=== PATIENT | male | born 1970 | race Caucasian/White ===

== ENCOUNTER 2017-05-21 17:49 | Inpatient (IN) | payer BC ==
[2017-05-21] MEDS ORDERED: IBUPROFEN 600 MG TAB PO STA (18:33)
[2017-05-21] MEDS ORDERED: ACETAMINOPHEN TAB 500 MG TAB PO STA (18:33)
[2017-05-21] MEDS ORDERED: IV VANCOMYCIN PER PHARMACY 1 EACH MISC MISCELLANE PRN (18:33)
--- NOTE | 2017-05-21 18:41 | ED ---
General Adult HPI - General Chief complaint: Extremity Problem,Nontraumatic Stated complaint: Knee Swelling/Pain Time Seen by Provider: 05/21/17 18:19 Source: patient, RN notes reviewed, old records reviewed Mode of arrival: ambulatory Limitations: no limitations - History of Present Illness Initial comments: This is a 47-year-old male presents with chief complaint of 1 day of left knee redness pain and swelling. 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 Patient reports that he's had this happen 2 times in the past. He was started on antibiotics and later sent home. He reports he's never had a history of septic joint infection. Patient reports that he does have a fever at this time but denies taking any recent Motrin or Tylenol. Patient states that he has pain with range of motion of the knee. Denies any pain with bearing weight over the knee. Patient states that he has no active ALLERGIES to antibiotics. He did see his primary care provider yesterday and did have 2 doses of Levaquin. He states that since taking the 2 doses antibiotics over the past day his the redness has increased over the entire calf and the mid thigh. - Related Data Home Medications Medication Instructions Recorded Confirmed ALPRAZolam [Xanax] 0.25 mg PO Q12H PRN 05/21/17 05/21/17 Levofloxacin [Levaquin] 750 mg PO HS 05/21/17 05/21/17 Meloxicam [Mobic] 15 mg PO HS 05/21/17 05/21/17 Metoprolol Succinate (ER) [Toprol 100 mg PO HS 05/21/17 05/21/17 Xl] Omeprazole 40 mg PO HS 05/21/17 05/21/17 Allergies Allergy/AdvReac Type Severity Reaction Status Date / Time MINI Inhibitors AdvReac Cough Verified 05/21/17 18:58 Review of Systems ROS Statement: Those systems with pertinent positive or pertinent negative responses have been documented in the HPI. ROS Other: All systems not noted in ROS Statement are negative. Past Medical History Past Medical History: Hypertension History of Any Multi-Drug Resistant Organisms: None Reported Additional Past Surgical History / Comment(s): sinus surg Past Psychological History: No Psychological Hx Reported Smoking Status: Never smoker Past Alcohol Use History: Occasional Past Drug Use History: None Reported General Exam - General Exam Comments Initial Comments: Is a 47-year-old male distress. Patient is febrile fever of 102.9. Limitations: no limitations General appearance: alert, in no apparent distress Head exam: Present: atraumatic, normocephalic, normal inspection Eye exam: Present: normal appearance, PERRL, EOMI. Absent: scleral icterus, conjunctival injection, periorbital swelling ENT exam: Present: normal exam, mucous membranes moist Neck exam: Present: normal inspection. Absent: tenderness, meningismus, lymphadenopathy Respiratory exam: Present: normal lung sounds bilaterally. Absent: respiratory distress, wheezes, rales, rhonchi, stridor Cardiovascular Exam: Present: regular rate, normal rhythm, normal heart sounds. Absent: systolic murmur, diastolic murmur, rubs, gallop, clicks GI/Abdominal exam: Present: soft, normal bowel sounds. Absent: distended, tenderness, guarding, rebound, rigid Extremities exam: Present: normal inspection, full ROM, normal capillary refill. Absent: tenderness, pedal edema, joint swelling, calf tenderness Left Hip exam: Present: normal inspection, full ROM Upper Leg exam: Present: full ROM, erythema. Absent: normal inspection Knee exam: Present: tenderness, swelling (Has significant swelling and tenderness over the knee joint. Evidence of erythema surrounding the knee, towards the lower leg and medial thigh.), erythema. Absent: normal inspection Lower Leg exam: Present: full ROM, erythema. Absent: normal inspection Neurovascular tendon exam: Present: no vascular compromise Back exam: Present: normal inspection Neurological exam: Present: alert, oriented X3, CN II-XII intact Psychiatric exam: Present: normal affect, normal mood Skin exam: Present: warm, dry, intact, normal color. Absent: rash Course Vital Signs 05/21/17 05/21/17 17:53 18:57 Temperature 102.8 F H Pulse Rate 85 88 Respiratory 18 18 Rate Blood Pressure 147/86 118/66 O2 Sat by Pulse 95 94 L Oximetry Medical Decision Making - Medical Decision Making This is a 47-year-old male presents emergency Department chief complaint of left leg redness and swelling for the past 2 days. Patient reports that yesterday he went to see his primary care provider was started on Levaquin for possible cellulitis. He had 2 doses reports that the fever and the redness is getting worse. At this time patient reports he has range of motion of the knee and no difficulty walking. He states that the knee joint itself is became increasingly swollen. Patient received x-ray which showed early osteoarthritis. Patient's erythema of the leg extending from the medial thigh down word towards medial calf. Patient was started on Rocephin and vancomycin pharmacy to dose. CRP uric acid also obtained. At this time I discussed case with Dr. mckee nurse practitioner Nichole Dillon. Malina the patient for IV antibiotics for left leg cellulitis as well as consult orthopedic for questionable septic arthritis. agrees to admission. Is also noted the patient's blood sugar was elevated on lab draw to 226, informing diagnosis of diabetes. - Lab Data Result diagrams: 05/21/17 18:47 05/21/17 18:47 Lab Results 05/21/17 05/21/17 05/21/17 Range/Units 18:47 18:47 18:47 WBC 12.1 H (3.8-10.6) k/uL RBC 4.61 (4.30-5.90) m/uL Hgb 14.4 (13.0-17.5) gm/dL Hct 42.2 (39.0-53.0) % MCV 91.4 (80.0-100.0) fL MCH 31.3 (25.0-35.0) pg MCHC 34.2 (31.0-37.0) g/dL RDW 13.5 (11.5-15.5) % Plt Count 135 L (150-450) k/uL Neutrophils % 84 % Lymphocytes % 8 % Monocytes % 6 % Eosinophils % 1 % Basophils % 0 % Neutrophils # 10.2 H (1.3-7.7) k/uL Lymphocytes # 1.0 (1.0-4.8) k/uL Monocytes # 0.7 (0-1.0) k/uL Eosinophils # 0.1 (0-0.7) k/uL Basophils # 0.0 (0-0.2) k/uL PT (9.0-12.0) sec INR (<1.2) APTT (22.0-30.0) sec Sodium 135 L (137-145) mmol/L Potassium 4.3 (3.5-5.1) mmol/L Chloride 102 (98-107) mmol/L Carbon Dioxide 22 (22-30) mmol/L Anion Gap 11 mmol/L BUN 19 (9-20) mg/dL Creatinine 1.00 (0.66-1.25) mg/dL Est GFR (MDRD) Af Amer >60 (>60 ml/min/1.73 sqM) Est GFR (MDRD) Non-Af >60 (>60 ml/min/1.73 sqM) Glucose 226 H (74-99) mg/dL Plasma Lactic Acid Antonio 1.7 (0.7-2.0) mmol/L Uric Acid 3.2 L (3.5-8.5) mg/dL Calcium 8.6 (8.4-10.2) mg/dL Total Bilirubin 1.2 (0.2-1.3) mg/dL AST 24 (17-59) U/L ALT 46 (21-72) U/L Alkaline Phosphatase 72 (38-126) U/L Total Protein 6.7 (6.3-8.2) g/dL Albumin 3.7 (3.5-5.0) g/dL Urine Color Urine Appearance (Clear) Urine pH (5.0-8.0) Ur Specific [place] (1.001-1.035) Urine Protein (Negative) Urine Glucose (UA) (Negative) Urine Ketones (Negative) Urine Blood (Negative) Urine Nitrite (Negative) Urine Bilirubin (Negative) Urine Urobilinogen (<2.0) mg/dL Ur Leukocyte Esterase (Negative) Urine RBC (0-5) /hpf Urine WBC (0-5) /hpf Ur Squamous Epith Cells (0-4) /hpf Urine Mucus (None) /hpf 05/21/17 05/21/17 Range/Units 18:47 18:47 WBC (3.8-10.6) k/uL RBC (4.30-5.90) m/uL Hgb (13.0-17.5) gm/dL Hct (39.0-53.0) % MCV (80.0-100.0) fL MCH (25.0-35.0) pg MCHC (31.0-37.0) g/dL RDW (11.5-15.5) % Plt Count (150-450) k/uL Neutrophils % % Lymphocytes % % Monocytes % % Eosinophils % % Basophils % % Neutrophils # (1.3-7.7) k/uL Lymphocytes # (1.0-4.8) k/uL Monocytes # (0-1.0) k/uL Eosinophils # (0-0.7) k/uL Basophils # (0-0.2) k/uL PT 12.6 H (9.0-12.0) sec INR 1.3 H (<1.2) APTT 28.9 (22.0-30.0) sec Sodium (137-145) mmol/L Potassium (3.5-5.1) mmol/L Chloride (98-107) mmol/L Carbon Dioxide (22-30) mmol/L Anion Gap mmol/L BUN (9-20) mg/dL Creatinine (0.66-1.25) mg/dL Est GFR (MDRD) Af Amer (>60 ml/min/1.73 sqM) Est GFR (MDRD) Non-Af (>60 ml/min/1.73 sqM) Glucose (74-99) mg/dL Plasma Lactic Acid Antonio (0.7-2.0) mmol/L Uric Acid (3.5-8.5) mg/dL Calcium (8.4-10.2) mg/dL Total Bilirubin (0.2-1.3) mg/dL AST (17-59) U/L ALT (21-72) U/L Alkaline Phosphatase (38-126) U/L Total Protein (6.3-8.2) g/dL Albumin (3.5-5.0) g/dL Urine Color Yellow Urine Appearance Clear (Clear) Urine pH 7.0 (5.0-8.0) Ur Specific [place] 1.021 (1.001-1.035) Urine Protein 1+ H (Negative) Urine Glucose (UA) 3+ H (Negative) Urine Ketones 1+ H (Negative) Urine Blood Negative (Negative) Urine Nitrite Negative (Negative) Urine Bilirubin Negative (Negative) Urine Urobilinogen 3.0 (<2.0) mg/dL Ur Leukocyte Esterase Negative (Negative) Urine RBC <1 (0-5) /hpf Urine WBC <1 (0-5) /hpf Ur Squamous Epith Cells <1 (0-4) /hpf Urine Mucus Rare H (None) /hpf 05/21/17 20:29 EKG shows normal sinus rhythm. Minimal voltage criteria for LVH. Borderline ECG. Ventricular rate 82 beats were reviewed. RI 186 most seconds. The adventist 104 ms. QT QTc is 380/443 ms. - Radiology Data Radiology results: report reviewed Early changes of osteoarthritis. Disposition Clinical Impression: Swelling of left knee joint, Left leg cellulitis, Sepsis, Hyperglycemia Disposition: ADMITTED IP TO THIS HOSP Condition: Stable Referrals: Darren Rodriguez DO [Primary Care Provider] - 1-2 days Time of Disposition: 20:46
[2017-05-21] MEDS: SODIUM CHLORIDE 0.9% 1,000 ML IV SCH (18:56)
[2017-05-21] MEDS: SODIUM CHLORIDE 0.9% 500 ML IV SCH ×3 (18:56→22:59)
[2017-05-21 19:13] LABS: Appearance,Urine Clear (Clear)
[2017-05-21 19:14] LABS: Bilirubin,Urine Negative (Negative); Glucose,Urine (UA) 3+ (Negative); Ketones,Urine 1+ (Negative); Leukocyte Esterase,Urine Negative (Negative); Mucus,Urine Rare /hpf; Nitrite,Urine Negative (Negative); Particle Count 1138; Protein,Urine 1+ (Negative); RBC,Urine <1 /hpf (0-5); Specific Gravity,Urine 1.021 (1.001-1.035); Squamous Epithelial Cell,Urine <1 /hpf (0-4); UA Billing (MACRO vs. MICRO) MICRO; WBC,Urine <1 /hpf (0-5)
[2017-05-21] MEDS ORDERED: VANCOMYCIN 1,750 MG in SODIUM CHLORIDE 0.9% 250 ML IVPB ONE (19:30)
--- NOTE | 2017-05-21 20:02 | XR ---
EXAMINATION TYPE: XR knee complete LT , 3 VIEWS DATE OF EXAM ORDERED: 05/21/2017 HISTORY: Pain. COMPARISON: Previous study dated 07/25/2013. FINDINGS: There is mild peaking of intercondylar spines. Joint spaces are reasonably well-maintained . No definite joint effusion is seen. IMPRESSION: EARLIEST CHANGES OF OSTEOARTHRITIS.
[2017-05-21 20:14] LABS: Basophils % (A) 0 %; CH 30.9; CHCM 33.9; Eosinophils # (A) 0.1 k/uL (0-0.7); Eosinophils % (A) 1 %; HCT 42.2 % (39.0-53.0); HDW 2.88; HGB 14.4 gm/dL (13.0-17.5); Luc # (Auto) 0.23; Luc % (Auto) 2; Lymphocytes % (A) 8 %; MCH 31.3 pg (25.0-35.0); MCHC 34.2 g/dL (31.0-37.0); MCV 91.4 fL (80.0-100.0); Mean Platelet Volume 8.4; Monocytes # (A) 0.7 k/uL (0-1.0); Monocytes % (A) 6 %; Neutrophils # (A) 10.2 k/uL (1.3-7.7); Neutrophils % (A) 84 %; RBC 4.61 m/uL (4.30-5.90); RDW 13.5 % (11.5-15.5); WBC 12.1 k/uL (3.8-10.6); WBC (Perox) 12.15
[2017-05-21 20:18] LABS: Glucose 226 mg/dL (74-99); Total Protein 6.7 g/dL (6.3-8.2); Uric Acid 3.2 mg/dL (3.5-8.5)
[2017-05-21 20:19] LABS: ALT 46 U/L (21-72); AST 24 U/L (17-59); Alkaline Phosphatase 72 U/L (38-126); Anion Gap 11 mmol/L; Blood Urea Nitrogen 19 mg/dL (9-20); Calcium 8.6 mg/dL (8.4-10.2); Carbon Dioxide 22 mmol/L (22-30); Chloride 102 mmol/L (98-107); Non-African American GFR(MDRD) >60 (>60 ml/min/1.73 sqM); Potassium 4.3 mmol/L (3.5-5.1); Sodium 135 mmol/L (137-145); Total Bilirubin 1.2 mg/dL (0.2-1.3)
[2017-05-21 20:20] LABS: INR 1.3 (<1.2); Partial Thromboplastin Time 28.9 sec (22.0-30.0); Prothrombin Time 12.6 sec (9.0-12.0)
[2017-05-21] MEDS ORDERED: KETOROLAC 30 MG/ML 1 ML VIAL IVP PRN (20:47)
[2017-05-21] MEDS ORDERED: NALOXONE 0.4 MG/ML 1 ML VIAL IV PRN (20:47)
[2017-05-21] MEDS ORDERED: ONDANSETRON 4 MG/2 ML VIAL IVP PRN (20:47)
[2017-05-21] MEDS ORDERED: MORPHINE SULFATE 4 MG/ML SYRINGE IV PRN (20:47)
[2017-05-21] MEDS ORDERED: IBUPROFEN 400 MG TAB PO PRN (20:47)
[2017-05-21 22:11] VITALS: BMI 31.6
[2017-05-22] MEDS: SODIUM CHLORIDE 0.9% 1,000 ML IV SCH ×3 (04:46→21:57)
[2017-05-22 07:20] LABS: Basophils % (A) 0 %; CH 30.8; CHCM 33.5; Eosinophils # (A) 0.1 k/uL (0-0.7); Eosinophils % (A) 1 %; HCT 41.2 % (39.0-53.0); HDW 2.96; HGB 13.7 gm/dL (13.0-17.5); Luc # (Auto) 0.25; Luc % (Auto) 2; Lymphocytes # (A) 0.9 k/uL (1.0-4.8); Lymphocytes % (A) 9 %; MCH 30.7 pg (25.0-35.0); MCHC 33.2 g/dL (31.0-37.0); MCV 92.4 fL (80.0-100.0); Mean Platelet Volume 8.3; Monocytes # (A) 0.7 k/uL (0-1.0); Monocytes % (A) 6 %; Neutrophils # (A) 8.5 k/uL (1.3-7.7); Neutrophils % (A) 82 %; RBC 4.46 m/uL (4.30-5.90); RDW 13.5 % (11.5-15.5); WBC 10.5 k/uL (3.8-10.6); WBC (Perox) 10.92
[2017-05-22 07:39] LABS: Anion Gap 10 mmol/L; Blood Urea Nitrogen 15 mg/dL (9-20); Calcium 8.7 mg/dL (8.4-10.2); Carbon Dioxide 24 mmol/L (22-30); Chloride 106 mmol/L (98-107); Glucose 127 mg/dL (74-99); Non-African American GFR(MDRD) >60 (>60 ml/min/1.73 sqM); Potassium 4.6 mmol/L (3.5-5.1); Sodium 140 mmol/L (137-145)
[2017-05-22] MEDS: ACETAMINOPHEN TAB 325 MG TAB PO PRN ×3 (08:30→21:57)
[2017-05-22] MEDS ORDERED: ALPRAZolam 0.25 MG TAB PO PRN (08:36)
[2017-05-22] MEDS: VANCOMYCIN 1,750 MG in SODIUM CHLORIDE 0.9% 250 ML IVPB SCH ×2 (09:51→21:49)
[2017-05-22] MEDS: ENOXAPARIN 40 MG/0.4 ML SYRINGE SQ SCH (10:50)
--- NOTE | 2017-05-22 12:57 | P.HPOR ---
History of Present Illness H&P Date: 05/22/17 Chief Complaint: Any redness and swelling Patient is very pleasant 47-year-old male who has been having swelling and redness in his left knee over the past 2 days. 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 This became worse he presented to his primary care physician's office was seen by the medical staff manager and they initially started treatment for gout. The patient does have history of patellar bursitis in the past and as his symptoms worsen he presented to the emergency room and was admitted in regards to prepatellar bursitis and cellulitis. He denies any specific injury other than the work that he was doing on the floor kneeling off over to do the tile however course of whole day. He denies any acute fevers denies any numbness to her weakness. Denies any significant pain in his knee but he feels significant soreness at his lower extremity. He denies any blunt trauma denies any specific changes in neurologic status. Denies any nausea or vomiting denies any chest pain shortness breath. Review of Systems As stated in HPI. He feels that the redness that his knee has improved somewhat over the course of the day this morning but he was hoping it would improve quicker. He is not having pain in his ankle. I is not having any pain in his hip. He is voiding freely hand had breakfast earlier which he tolerated well Past Medical History Past Medical History: Hypertension, Musculoskeletal Disorder (History of prepatellar bursitis 4. Also history of traumatic vertebral compression fracture which healed well.) History of Any Multi-Drug Resistant Organisms: None Reported Additional Past Surgical History / Comment(s): sinus surg Past Psychological History: No Psychological Hx Reported Smoking Status: Never smoker Past Alcohol Use History: Occasional Past Drug Use History: None Reported Medications and Allergies Home Medications Medication Instructions Recorded Confirmed Type ALPRAZolam [Xanax] 0.25 mg PO Q12H PRN 05/21/17 05/21/17 History Levofloxacin [Levaquin] 750 mg PO HS 05/21/17 05/21/17 History Meloxicam [Mobic] 15 mg PO HS 05/21/17 05/21/17 History Metoprolol Succinate (ER) [Toprol 100 mg PO HS 05/21/17 05/21/17 History Xl] Omeprazole 40 mg PO HS 05/21/17 05/21/17 History Allergies Allergy/AdvReac Type Severity Reaction Status Date / Time MINI Inhibitors AdvReac Cough Verified 05/21/17 18:58 Physical Examination Osteopathic Statement: *. No significant issues noted on an osteopathic structural exam other than those noted in the History and Physical/Consult. - Knee left Appearance: other (In his left knee there is swelling at the anterior aspect over his patellar tendon. There is erythema over his knee and extending down toward his lower leg. This is been outlined with a pen. The erythema has improved apparently from this morning but is still present. There is fluid collection at his prepatellar bursa which is palpable. He is not tender for him he is able to flex and extend his knee fully 230 of flexion and full extension. There is no joint effusion specifically. His Thigh are soft and nontender. There is no significant swelling of his thigh. He has sustained dorsal flexion plantar flexion and extensor hallucis longus intact. There is no pain at his hip. His abdomen soft nontender chest is good excursion deep inspiration and expiration neck is nontender to palpation back is nontender his upper extremity full active and passive range of motion without any pain. His right lower extremity is functioning well without any pain) Results - Labs Labs: Abnormal Lab Results - Last 24 Hours (Table) 05/21/17 05/21/17 05/21/17 Range/Units 18:47 18:47 18:47 WBC 12.1 H (3.8-10.6) k/uL Plt Count 135 L (150-450) k/uL Neutrophils # 10.2 H (1.3-7.7) k/uL Lymphocytes # (1.0-4.8) k/uL PT 12.6 H (9.0-12.0) sec INR 1.3 H (<1.2) Sodium 135 L (137-145) mmol/L Glucose 226 H (74-99) mg/dL Uric Acid 3.2 L (3.5-8.5) mg/dL C-Reactive Protein (<10.0) mg/L Urine Protein (Negative) Urine Glucose (UA) (Negative) Urine Ketones (Negative) Urine Mucus (None) /hpf 05/21/17 05/21/17 05/22/17 Range/Units 18:47 18:47 06:49 WBC (3.8-10.6) k/uL Plt Count (150-450) k/uL Neutrophils # (1.3-7.7) k/uL Lymphocytes # (1.0-4.8) k/uL PT (9.0-12.0) sec INR (<1.2) Sodium (137-145) mmol/L Glucose 127 H (74-99) mg/dL Uric Acid (3.5-8.5) mg/dL C-Reactive Protein 204.9 H (<10.0) mg/L Urine Protein 1+ H (Negative) Urine Glucose (UA) 3+ H (Negative) Urine Ketones 1+ H (Negative) Urine Mucus Rare H (None) /hpf 05/22/17 Range/Units 06:49 WBC (3.8-10.6) k/uL Plt Count 139 L (150-450) k/uL Neutrophils # 8.5 H (1.3-7.7) k/uL Lymphocytes # 0.9 L (1.0-4.8) k/uL PT (9.0-12.0) sec INR (<1.2) Sodium (137-145) mmol/L Glucose (74-99) mg/dL Uric Acid (3.5-8.5) mg/dL C-Reactive Protein (<10.0) mg/L Urine Protein (Negative) Urine Glucose (UA) (Negative) Urine Ketones (Negative) Urine Mucus (None) /hpf Microbiology - Last 24 Hours (Table) 05/21/17 18:47 Urine Culture - Preliminary Urine,Voided H & H 05/21/17 05/22/17 Range/Units 18:47 06:49 Hgb 14.4 13.7 (13.0-17.5) gm/dL Hct 42.2 41.2 (39.0-53.0) % Coagulation 05/21/17 Range/Units 18:47 INR 1.3 H (<1.2) Result Diagrams: 05/22/17 06:49 05/22/17 06:49 - Diagnostic results Knee x-ray: image reviewed (No evidence of any fracture or dislocation. There is some soft tissue swelling diffusely) Assessment and Plan Plan: Left knee prepatellar bursitis, acute Left lower extremity cellulitis History of prepatellar bursitis, recurrent 4 The patient has prepatellar bursitis and lower extremity cellulitis. This is initially treated as gout which was not effective for him and then he was started on Levaquin which did not seem to provide adequate coverage for him. Since being in hospital he has been on IV vancomycin and seems to be making a difference causing improvement at the lower extremity and erythema. He does have a fluid collection his prepatellar bursa but he does not seem to have specific joint in involvement or effusion. I do not think that he has evidence of any septic joint. He is making improvement thus far and I think that he should continue with his IV antibiotics. We will go ahead and let him eat today. He is long as he continues to improve I think he could continue with conservative management and may be able to convert or 4 to oral antibiotics as the gram-positive coverage seems to be affecting him well. If he continues to make good room and he could be discharged home for close follow-up next week. If his improvement subside or if he is having significant worsening he may need surgical irrigation and debridement of the prepatellar bursa. I discussed this with him today at bedside. I also discussed the case with the orthopedic surgeon vascular sonographer this weekend and they understand. I answered the patient's questions best for ability C understand their group plan is an dictation on Riley koch
--- NOTE | 2017-05-22 17:00 | HP ---
HISTORY AND PHYSICAL DATE OF ADMISSION: 05/22/2017 PRESENTING COMPLAINT: Redness, swelling and pain around the left knee. HISTORY OF PRESENTING COMPLAINT: A very pleasant 47-year-old patient of Dr. Rodriguez. Known history of hypertension. 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 He has been wearing an old support pad. Patient presented with increasing pain and swelling of the left knee extending both above and below the knee with fever, pain, swelling. REVIEW OF SYSTEMS: CONSTITUTIONAL: Febrile, weak, tired. HEENT: None. RESPIRATORY: None. CARDIOVASCULAR: None. GASTROINTESTINAL: None. GENITOURINARY: None. MUSCULOSKELETAL: As above. DERMATOLOGICAL: As above. PSYCHIATRY: None. NEUROLOGICAL: None. PAST MEDICAL HISTORY: 1. Hypertension. 2. Previous cellulitis. PAST SURGICAL HISTORY: Sinus surgery. 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 Alcohol occasionally. The patient does not smoke. . FAMILY HISTORY: Reviewed; noncontributory to presentation. PHYSICAL EXAMINATION: VITAL SIGNS ON PRESENTATION: Temperature 102.6, pulse 103, respiration 16, blood pressure 122/97, pulse ox 92% on room air. GENERAL APPEARANCE: Well built; BMI 31.6. Lying in bed, tired-appearing. EYES: Pupils equal. Conjunctivae normal. HEENT: Oral cavity normal. NECK: JVD not raised. Mass not palpable. RESPIRATORY: Effort normal. Lungs are clear. CARDIOVASCULAR: First and second sounds normal. No edema. ABDOMEN: Soft, nontender. Liver and spleen not palpable. LYMPHATIC: No lymph node palpable in neck or axillae. PSYCHIATRY: Alert oriented x3. Mood and affect normal. NEUROLOGICAL: Pupils equal. Cranial nerves grossly intact. Power and sensation grossly intact. MUSCULOSKELETAL/DERMATOLOGICAL: Area of redness around the left knee, especially in the prepatellar, bursal area, extending to above the knee and below the knee. Area has been marked off with a skin marker. A little bit better since admission, he says. INVESTIGATIONS: White count 12.1, hemoglobin 14.4, potassium 4.3. ASSESSMENT: 1. Acute severe bursitis with acute cellulitis in a patient who has previously had the same episode over 2 years ago causing sepsis, present on admission. 2. Essential hypertension. PLAN: Patient has been started on IV vancomycin. Home medications are resumed. Orthopedics was consulted for possible I&D of the same. Care was discussed with the patient. Questions were answered. MMODL / IJN: [id number] /
[2017-05-22] MEDS: PANTOPRAZOLE 40 MG TABLET PO SCH (21:45)
[2017-05-22] MEDS: MELOXICAM 7.5 MG TAB PO SCH (21:47)
[2017-05-22] MEDS: METOPROLOL SUCCINATE (ER) 100 MG TAB.ER.24H PO SCH (21:50)
[2017-05-23] MEDS: SODIUM CHLORIDE 0.9% 1,000 ML IV SCH ×3 (06:14→22:18)
[2017-05-23 07:44] LABS: Anion Gap 8 mmol/L; Blood Urea Nitrogen 17 mg/dL (9-20); Calcium 8.6 mg/dL (8.4-10.2); Carbon Dioxide 26 mmol/L (22-30); Chloride 104 mmol/L (98-107); Glucose 139 mg/dL (74-99); Non-African American GFR(MDRD) >60 (>60 ml/min/1.73 sqM); Potassium 4.4 mmol/L (3.5-5.1); Sodium 138 mmol/L (137-145)
[2017-05-23] MEDS: VANCOMYCIN 1,750 MG in SODIUM CHLORIDE 0.9% 250 ML IVPB SCH ×3 (09:23→22:15)
--- NOTE | 2017-05-23 10:42 | P.PN ---
Subjective Progress Note Date: 05/23/17 Principal diagnosis: Septic prepatellar bursitis left lower extremity. This is a 47-year-old male who we are following regarding prepatellar bursitis and cellulitis of the left lower extremity. He continues on his IV antibiotics. He has no new complaints or concerns today. He feels the swelling is down but the redness has extended to the inner aspect of his thigh. Objective - Vital Signs Vital signs: Vital Signs Temp 98.7 F 05/23/17 07:00 Pulse 68 05/23/17 07:00 Resp 16 05/23/17 07:00 BP 160/93 05/23/17 07:00 Pulse Ox 97 05/23/17 07:00 Intake & Output 05/22/17 05/23/17 05/23/17 18:59 06:59 18:59 Intake Total 1190 Balance 1190 Intake: Intake, IV Titration 1190 Amount Sodium Chloride 0.9% 1, 1190 000 ml @ 120 mls/hr IV . Q8H20M [facility] Rx#:[id number] Other: # Voids 2 2 - Exam This is a 47-year-old male in no acute distress. He is alert and oriented 3. He is ambulating independently without difficulty. Exam of the left lower extremity reveals erythema about the mid thigh to the lower leg. The redness has extended slightly beyond the marked area medially and proximally. There is mild fluctuance to the prepatellar bursa. There are no open wounds or drainage. He has full range of motion of the knee without difficulty. He has full foot and ankle motion without difficulty or pain. Neurovascular status to the lower extremity is intact. - Labs CBC & Chem 7: 05/22/17 06:49 05/23/17 06:53 Labs: Abnormal Lab Results - Last 24 Hours (Table) 05/23/17 Range/Units 06:53 Glucose 139 H (74-99) mg/dL Microbiology - Last 24 Hours (Table) 05/21/17 18:47 Urine Culture - Final Urine,Voided 05/21/17 18:47 Blood Culture - Preliminary Blood No Growth after 24 hours Assessment and Plan (1) Septic prepatellar bursitis of left knee Status: Acute (2) Left leg cellulitis Status: Acute Plan: The clinical findings are discussed the patient. I will add a K pad. He is advised to restrict range of motion of the knee. He is offered a knee immobilizer but declines at this time. We will continue IV antibiotics.
[2017-05-23] MEDS: ACETAMINOPHEN TAB 325 MG TAB PO PRN (14:57)
[2017-05-23] MEDS: ENOXAPARIN 40 MG/0.4 ML SYRINGE SQ SCH (14:58)
--- NOTE | 2017-05-23 15:09 | US ---
EXAMINATION TYPE: US venous doppler duplex LE LT DATE OF EXAM: 05/23/2017 1:58 PM COMPARISON: NONE CLINICAL HISTORY: r/o DVT. Redness and swelling left leg SIDE PERFORMED: Left TECHNIQUE: The lower extremity deep venous system is examined utilizing real time linear array sonog milana with graded compression, doppler sonography and color-flow sonography. VESSELS IMAGED: External Iliac Vein (EIV) Common Femoral Vein Deep Femoral Vein Greater Saphenous Vein * Femoral Vein Popliteal Vein Small Saphenous Vein * Proximal Calf Veins (* superficial vessels) Left Leg: Appears negative for DVT IMPRESSION: Grayscale, color doppler, spectral doppler imaging performed of the deep veins of the lo wer extremities. There is normal flow, compressibility, vascular waveforms.
--- NOTE | 2017-05-23 17:17 | P.PN ---
Progress Note - Text Progress Note Date: 05/23/17 DATE OF SERVICE: 05/23/2017 PRESENTING COMPLAINT: cellulitis of the left knee HISTORY OF PRESENT ILLNESS: 47-year-old male who presented with increasing pain and swelling of the left knee extending both above and below the knee with fever pain and swelling. Found to have cellulitis of the left knee and lower extremity and admitted for the same. INTERVAL HISTORY: 05/23/2017: Patient walking around the room, has a lot of energy. Left leg remains swollen knee tender. states the knee and leg feel some better but it does look like the swelling has spread a bit. Patient is ambulatory in the room and holly ways, tolerating his diet. REVIEW OF SYSTEMS: Done for constitutional ,cardiovascular, GI, pulmonary with relevant findings as above. CURRENT MEDICATIONS Xanax, Lovenox, Motrin, Toradol, Mobic, Toprol-XL, PHYSICAL EXAM VITAL SIGNS: temperature 98.7, pulse 68, respiratory rate 16, blood pressure 160/93, oxygen saturation I7 percent on room air. GENERAL APPEARANCE: Lying in bed, not in distress. EYES: Pupils equal. Conjunctiva normal. NECK: JVD not raised. Mass not palpable. RESPIRATORY: Respiratory effort normal. Lungs clear to auscultation. CARDIOVASCULAR: First and second sounds normal. No edema. ABDOMEN: Soft. Liver and spleen not palpable. No tenderness. No mass palpable. PSYCHIATRY: Alert and oriented x3. Mood and affect normal. NEUROLOGICAL: Cranial nerves grossly intact. No facial asymmetry. Power and sensation grossly intact INVESTIGATIONS: BMP unremarkable ASSESSMENT: -acute severe bursitis with acute cellulitis and the patient has previously had seen episode or 2 years ago causing sepsis, present on admission, improving -Essential hypertension. -anxiety not otherwise specified PLAN: we'll continue IV antibiotic therapy with Vanco and Zosyn, Silvadene cream for topical relief wrapped with Kerlix and an Frankie wrap to reduce swelling, orthopedics also recommended the use of a K pad and some heat to encourage healing. Plan of care discussed with the patient the bedside he is in agreement. We will follow closely. HRBP statement: Patient was seen and examined by nurse practitioner Nichole Hughes and all elements of the case discussed with attending Dr. León
[2017-05-23] MEDS: MELOXICAM 7.5 MG TAB PO SCH (20:42)
[2017-05-23] MEDS: PANTOPRAZOLE 40 MG TABLET PO SCH (20:42)
[2017-05-23] MEDS: METOPROLOL SUCCINATE (ER) 100 MG TAB.ER.24H PO SCH (20:43)
--- NOTE | 2017-05-23 22:49 | PN ---
PROGRESS NOTE DATE OF SERVICE: 05/23/2017. ATTENDING NOTE: This patient seen and examined by me. I discussed with my nurse practitioner, Ms. Hughes. Patient admitted with prepatellar bursitis and cellulitis of left lower extremity. Redness is getting better, able to flex the leg better. No surgical intervention was decided, which I think was appropriate. EXAMINATION: T-max 101.9 last night. Fever is coming down. Pulse 68, respirations 16, blood pressure 160/93. Decreased redness around the knee and above and below the knee. Increased circumference of the left calf compared to the right. ASSESSMENT: 1. Acute prepatellar bursitis with cellulitis with some clinical improvement. 2. Rule out deep venous thrombosis. PLAN: I did order a Doppler ultrasound earlier in the day that did come back negative for DVT. I also ordered Silvadene cream with Kerlix and Frankie wrap to cut back on edema. MMODL / IJN: [id number] /
[2017-05-24] MEDS: SODIUM CHLORIDE 0.9% 1,000 ML IV SCH ×3 (05:35→22:17)
[2017-05-24] MEDS ORDERED: VANCOMYCIN TROUGH DUE 1 EACH MISC MISCELLANE ONE (08:00)
--- NOTE | 2017-05-24 08:27 | P.PN ---
Subjective Progress Note Date: 05/24/17 Principal diagnosis: Septic prepatellar bursitis left lower extremity. This is a 47-year-old male who we are following regarding prepatellar bursitis and cellulitis of the left lower extremity. He continues on his IV antibiotics. He has no new complaints or concerns today. He feels the swelling is down but the redness has extended to the inner aspect of his thigh. Objective - Vital Signs Vital signs: Vital Signs Temp 98.5 F 05/24/17 05:39 Pulse 68 05/24/17 00:00 Resp 18 05/24/17 00:00 BP 146/87 05/24/17 00:00 Pulse Ox 95 05/24/17 00:00 Intake & Output 05/23/17 05/24/17 05/24/17 18:59 06:59 18:59 Weight 97.069 kg Other: Voiding Method Toilet Toilet # Voids 2 1 - Exam This is a 47-year-old male in no acute distress. He is alert and oriented 3. He is ambulating independently without difficulty. Exam of the left lower extremity reveals erythema about the mid thigh to the lower leg. The redness has extended beyond the marked area medially and proximally. There is mild fluctuance to the prepatellar bursa. There are no open wounds or drainage. He has full range of motion of the knee without difficulty. He has full foot and ankle motion without difficulty or pain. Neurovascular status to the lower extremity is intact. - Labs CBC & Chem 7: 05/22/17 06:49 05/23/17 06:53 Labs: Microbiology - Last 24 Hours (Table) 05/21/17 18:47 Blood Culture - Preliminary Blood No Growth after 48 hours 05/22/17 08:51 Blood Culture - Preliminary Blood No Growth after 24 hours 05/22/17 08:42 Blood Culture - Preliminary Blood No Growth after 24 hours Assessment and Plan (1) Septic prepatellar bursitis of left knee Status: Acute (2) Left leg cellulitis Status: Acute Plan: The clinical findings are discussed the patient. His erythema continues to progress. I recommend that he be evaluated by infectious disease. I will add a knee immobilizer. We will continue IV antibiotics.
[2017-05-24 08:51] LABS: Anion Gap 8 mmol/L; Blood Urea Nitrogen 15 mg/dL (9-20); Calcium 8.7 mg/dL (8.4-10.2); Carbon Dioxide 25 mmol/L (22-30); Chloride 103 mmol/L (98-107); Glucose 232 mg/dL (74-99); Non-African American GFR(MDRD) >60 (>60 ml/min/1.73 sqM); Potassium 4.2 mmol/L (3.5-5.1); Sodium 136 mmol/L (137-145)
[2017-05-24] MEDS: VANCOMYCIN 1,750 MG in SODIUM CHLORIDE 0.9% 250 ML IVPB SCH (09:16)
[2017-05-24] MEDS: ENOXAPARIN 40 MG/0.4 ML SYRINGE SQ SCH (09:16)
--- NOTE | 2017-05-24 15:48 | P.PN ---
Progress Note - Text Progress Note Date: 05/24/17 DATE OF SERVICE: 05/24/2017 PRESENTING COMPLAINT: cellulitis of the left knee HISTORY OF PRESENT ILLNESS: 47-year-old male who presented with increasing pain and swelling of the left knee extending both above and below the knee with fever pain and swelling. Found to have cellulitis of the left knee and lower extremity and admitted for the same. INTERVAL HISTORY: 05/24/2017: Overnight patient developed increased swelling to the left lower extremity knee calf and upper thigh area after application of Silvadene cream and a Kerlix wrap with Frankie wrap. He was also applied, extremity became very red and very warm and very tender patient was unable to walk. Frankie wrap removed Kerlix removed Silvadene washed off, pain improved.Silvadene was put back on this morning with a Kerlix wrap and orthopedics added an immobilizer. Patient's had some concerns about treatment and suggested if patient is not improved by tomorrow that perhaps a transfer to [place] would be in order. Tolerating his diet ambulatory within the room and holly ways. 05/23/2017: Patient walking around the room, has a lot of energy. Left leg remains swollen knee tender. states the knee and leg feel some better but it does look like the swelling has spread a bit. Patient is ambulatory in the room and holly ways, tolerating his diet. REVIEW OF SYSTEMS: Done for constitutional ,cardiovascular, GI, pulmonary with relevant findings as above. CURRENT MEDICATIONS Xanax, Lovenox, Motrin, Toradol, Mobic, Toprol-XL,Silvadene cream PHYSICAL EXAM VITAL SIGNS: Temperature 99.4, pulse 73, respiratory rate 18, blood pressure 149/83, oxygen saturation 96% on room air. GENERAL APPEARANCE: Lying in bed, not in distress. EYES: Pupils equal. Conjunctiva normal. NECK: JVD not raised. Mass not palpable. RESPIRATORY: Respiratory effort normal. Lungs clear to auscultation. CARDIOVASCULAR: First and second sounds normal. No edema. ABDOMEN: Soft. Liver and spleen not palpable. No tenderness. No mass palpable. PSYCHIATRY: Alert and oriented x3. Mood and affect normal INTEGUMENT:left lower extremity red, swelling,tender erythema noted to the calf up to the upper thigh. INVESTIGATIONS: sodium 136, Accu-Cheks noted. ASSESSMENT: -acute severe bursitis with acute cellulitis and the patient has previously had seen episode or 2 years ago causing sepsis, present on admission, improving -Essential hypertension. -anxiety not otherwise specified PLAN: we'll continue IV antibiotic therapy with Vanco and Zosyn, Silvadene cream for topical relief wrapped with Kerlix and an Frankie wrap to reduce swelling, orthopedics also recommended the use of an immobilizer. Plan of care discussed with the patientand at the bedside, the patient is not improved tomorrow they would like to consider being transferred to [place]. We will follow closely. 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 León
--- NOTE | 2017-05-24 15:57 | P.CONS ---
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 After that he started to have some pain into his left knee. His experiences several times in the past with some swelling. He has been to the emergency center in the past for this problem with occasional improvement. He went to his local physician. Was thought that maybe he had gout and was treated for that. Despite that treatment he had no improvement and eventually presented to the emergency center because increasing pain and redness and swelling to the knee. He was quite concerned about a blood infection. Consequently the patient was seen by orthopedics and contemplation for incision and drainage has been made. Infectious disease consultation was requested because of ongoing erythema increasing erythema increasing pain and tenderness to the prepatellar area. He continues to have intermittent fever and chills. His fever is improved from the 102.8 at the time of admission. 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 Does not recall specific trauma us early had repetitive kneeling. He otherwise is not feeling poorly. No other acute joint troubles at this time. Review of Systems HEENT:Denies headache or acute visual change. Denies sinus or mouth discomforts. Denies neck stiffness or pain. Denies significant oral cavity pain. Denies difficulty on swallowing. Lungs: Denies significant shortness of breath, cough, sputum production, or hemoptysis. Cardiovascular: Denies significant shortness of breath, chest pain, chest wall pain, orthopnea, dyspnea on exertion, syncope Gastrointestinal:Denies nausea, vomiting, diarrhea, constipation, hematemesis, melena, hematochezia. No no significant change of bowel habit noticed. Musculoskeletal: Swelling to the left knee as per the HPI. It is a history of a back fracture 8 years ago without ongoing pain at this time. Skin: Erythema left knee as per the HPI Neuro: Denies headache or visual change. Denies any new onset weakness or difficulty with ambulation. Denies falls or seizures. Psychiatric:Denies anxiety or depression. Endocrine: Denies significant fatigue, denies significant weight loss or weight gain. Past Medical History Past Medical History: Hypertension, Musculoskeletal Disorder (History of prepatellar bursitis 4. 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 No tobacco use. No alcohol abuse no recreational drug use. International travel [place] on cruises but nothing else at this time. Animal exposures with dogs cats and chickens on his property Smoking Status: Never smoker Past Alcohol Use History: Occasional Past Drug Use History: None Reported Medications and Allergies Home Medications and Allergies Comment(s): Current Medications Acetaminophen (Tylenol Tab) 650 mg PO Q6HR PRN PRN Reason: Mild Pain or Fever > 100.5 Last Admin: 05/23/17 14:57 Dose: 650 mg Alprazolam (Xanax) 0.25 mg PO Q12H PRN PRN Reason: Anxiety Enoxaparin Sodium (Lovenox) 40 mg SQ DAILY [facility] Last Admin: 05/24/17 09:16 Dose: 40 mg Sodium Chloride (Saline 0.9%) 1,000 mls @ 120 mls/hr IV .Q8H20M [facility] Last Admin: 05/24/17 15:12 Dose: Not Given Daptomycin 500 mg/ Sodium (Chloride) 50 mls @ 100 mls/hr IV Q24H [facility] Ibuprofen (Motrin) 400 mg PO Q6HR PRN PRN Reason: Mild Pain or Fever > 100.5 Ketorolac Tromethamine (Toradol) 30 mg IVP Q6HR PRN PRN Reason: Moderate Pain Stop: 05/26/17 20:48 Meloxicam (Mobic) 15 mg PO HS [facility] Last Admin: 05/23/17 20:42 Dose: 15 mg Metoprolol Succinate (Toprol Xl) 100 mg PO [facility] Last Admin: 05/23/17 20:43 Dose: 100 mg Morphine Sulfate (Morphine Sulfate (Inj)) 4 mg IV Q4HR PRN PRN Reason: Severe Pain Naloxone HCl (Narcan) 0.2 mg IV Q2M PRN PRN Reason: Opioid Reversal Ondansetron HCl (Zofran) 4 mg IVP Q8HR PRN PRN Reason: Nausea And Vomiting Pantoprazole Sodium (Protonix) 40 mg PO [facility] Last Admin: 05/23/17 20:42 Dose: 40 mg Silver Sulfadiazine (Silvadene Cream) 1 applic TOPICAL BID [facility] Last Admin: 05/24/17 10:59 Dose: 1 applic Home Medications Medication Instructions Recorded Confirmed Type ALPRAZolam [Xanax] 0.25 mg PO Q12H PRN 05/21/17 05/21/17 History Levofloxacin [Levaquin] 750 mg PO HS 05/21/17 05/21/17 History Meloxicam [Mobic] 15 mg PO 05/21/17 05/21/17 History Metoprolol Succinate (ER) [Toprol 100 mg PO HS 05/21/17 05/21/17 History Xl] Omeprazole 40 mg PO HS 05/21/17 05/21/17 History Allergies Allergy/AdvReac Type Severity Reaction Status Date / Time MINI Inhibitors AdvReac Cough Verified 05/21/17 18:58 Physical Exam Vitals: Vital Signs Temp Pulse Pulse Resp BP Pulse Ox 05/24/17 13:58 99.8 F H 64 18 139/86 96 05/24/17 07:00 99.4 F 73 18 149/83 96 05/24/17 05:39 98.5 F 05/24/17 00:00 98.3 F 68 18 146/87 95 05/23/17 19:50 98.7 F 68 18 148/87 95 05/23/17 16:00 72 18 Intake and Output 05/24/17 05/24/17 05/24/17 06:59 14:59 22:59 Intake Total 970 Balance 970 Intake: IV 970 Sodium Chloride 0.9% 1, 720 000 ml @ 120 mls/hr IV . Q8H20M [facility] Rx#:[id number] Vancomycin 1,750 mg In 250 Sodium Chloride 0.9% 250 ml @ 125 mls/hr IVPB BID [facility] Rx#:[id number] Other: # Voids 1 Pleasant 47-year-old male, muscular but minimally overweight build who is minimally uncomfortable not currently having a sweat but had one earlier HEENT: Anicteric conjunctiva are pink and moist nasal mucosa grossly intact without significant lesions, there is no thrush. Neck: The neck is supple without significant lymphadenopathy or thyromegaly. Lungs: Good bilateral air entry without significant crackles or wheezing. There is no significant bronchial sounds. There is no egophony or dullness. Heart: Regular rate and rhythm with an audible S1-S2, no S3 no S4. There is no significant murmur click or rub, PMI was nondisplaced. Abdomen: Positive bowel sounds soft and nontender without palpable masses or organomegaly. There was no guarding or rebound. Extremities: The upper extremities have excellent pulses they are symmetric, no significant petechiae or telangiectasia. No splinter hemorrhages were noted. The right leg is without any difficulties. The left lower extremity shows evidence of the intense erythema about the knee with evidence of the significant swelling to the left prepatellar space. There is fluctuance. There is dense erythema in this area. There is also erythema that travels down to the mid calf and above the knee. No significant lymphadenopathy is seen in the left groin or other areas. Neuro: Awake alert oriented to person place and time. There are no acute new gross focal sensory motor deficits. Results CBC & Chem 7: 05/22/17 06:49 05/24/17 08:12 Labs: Abnormal Lab Results - Last 24 Hours (Table) 05/24/17 Range/Units 08:12 Sodium 136 L (137-145) mmol/L Glucose 232 H (74-99) mg/dL Microbiology - Last 24 Hours (Table) 05/22/17 08:51 Blood Culture - Preliminary Blood No Growth after 48 hours 05/22/17 08:42 Blood Culture - Preliminary Blood No Growth after 48 hours 05/21/17 18:47 Blood Culture - Preliminary Blood No Growth after 48 hours Laboratory Results WBC 10.5 k/uL (3.8-10.6) 05/22/17 06:49 RBC 4.46 m/uL (4.30-5.90) 05/22/17 06:49 Hgb 13.7 gm/dL (13.0-17.5) 05/22/17 06:49 Hct 41.2 % (39.0-53.0) 05/22/17 06:49 MCV 92.4 fL (80.0-100.0) 05/22/17 06:49 MCH 30.7 pg (25.0-35.0) 05/22/17 06:49 MCHC 33.2 g/dL (31.0-37.0) 05/22/17 06:49 RDW 13.5 % (11.5-15.5) 05/22/17 06:49 Plt Count 139 k/uL (150-450) L 05/22/17 06:49 Neutrophils % 82 % 05/22/17 06:49 Lymphocytes % 9 % 05/22/17 06:49 Monocytes % 6 % 05/22/17 06:49 Eosinophils % 1 % 05/22/17 06:49 Basophils % 0 % 05/22/17 06:49 Neutrophils # 8.5 k/uL (1.3-7.7) H 05/22/17 06:49 Lymphocytes # 0.9 k/uL (1.0-4.8) L 05/22/17 06:49 Monocytes # 0.7 k/uL (0-1.0) 05/22/17 06:49 Eosinophils # 0.1 k/uL (0-0.7) 05/22/17 06:49 Basophils # 0.0 k/uL (0-0.2) 05/22/17 06:49 PT 12.6 sec (9.0-12.0) H 05/21/17 18:47 INR 1.3 (<1.2) H 05/21/17 18:47 APTT 28.9 sec (22.0-30.0) 05/21/17 18:47 Sodium 136 mmol/L (137-145) L 05/24/17 08:12 Potassium 4.2 mmol/L (3.5-5.1) 05/24/17 08:12 Chloride 103 mmol/L (98-107) 05/24/17 08:12 Carbon Dioxide 25 mmol/L (22-30) 05/24/17 08:12 Anion Gap 8 mmol/L 05/24/17 08:12 BUN 15 mg/dL (9-20) 05/24/17 08:12 Creatinine 0.90 mg/dL (0.66-1.25) 05/24/17 08:12 Est GFR (MDRD) Af Amer >60 (>60 ml/min/1.73 sqM) 05/24/17 08:12 Est GFR (MDRD) Non-Af >60 (>60 ml/min/1.73 sqM) 05/24/17 08:12 Glucose 232 mg/dL (74-99) H 05/24/17 08:12 Plasma Lactic Acid Antonio 1.4 mmol/L (0.7-2.0) 05/22/17 08:42 Uric Acid 3.2 mg/dL (3.5-8.5) L 05/21/17 18:47 Calcium 8.7 mg/dL (8.4-10.2) 05/24/17 08:12 Total Bilirubin 1.2 mg/dL (0.2-1.3) 05/21/17 18:47 AST 24 U/L (17-59) 05/21/17 18:47 ALT 46 U/L (21-72) 05/21/17 18:47 Alkaline Phosphatase 72 U/L (38-126) 05/21/17 18:47 C-Reactive Protein 204.9 mg/L (<10.0) H 05/21/17 18:47 Total Protein 6.7 g/dL (6.3-8.2) 05/21/17 18:47 Albumin 3.7 g/dL (3.5-5.0) 05/21/17 18:47 Urine Color Yellow 05/21/17 18:47 Urine Appearance Clear (Clear) 05/21/17 18:47 Urine pH 7.0 (5.0-8.0) 05/21/17 18:47 Ur Specific [place] 1.021 (1.001-1.035) 05/21/17 18:47 Urine Protein 1+ (Negative) H 05/21/17 18:47 Urine Glucose (UA) 3+ (Negative) H 05/21/17 18:47 Urine Ketones 1+ (Negative) H 05/21/17 18:47 Urine Blood Negative (Negative) 05/21/17 18:47 Urine Nitrite Negative (Negative) 05/21/17 18:47 Urine Bilirubin Negative (Negative) 05/21/17 18:47 Urine Urobilinogen 3.0 mg/dL (<2.0) 05/21/17 18:47 Ur Leukocyte Esterase Negative (Negative) 05/21/17 18:47 Urine RBC <1 /hpf (0-5) 05/21/17 18:47 Urine WBC <1 /hpf (0-5) 05/21/17 18:47 Ur Squamous Epith Cells <1 /hpf (0-4) 05/21/17 18:47 Urine Mucus Rare /hpf (None) H 10 18:47 Vancomycin Trough 10.0 ug/mL 05/24/17 08:12 Microbiology 05/22/17 08:51 Blood Blood Culture - Preliminary No Growth after 48 hours 05/22/17 08:42 Blood Blood Culture - Preliminary No Growth after 48 hours 05/21/17 18:47 Blood Blood Culture - Preliminary No Growth after 48 hours 05/21/17 18:47 Urine,Voided Urine Culture - Final Assessment and Plan (1) Septic prepatellar bursitis of left knee Narrative/Plan: Very pleasant 87-year-old male presents to Hospital significant pain and swelling to his left knee. 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 After that he develops to begin pain swelling erythema to the knee and is not she's had a waxing and waning course but is now considerably worse. Is increasing amounts of erythema. We'll alter vancomycin to daptomycin at this time for murmur bacteriocidal effect. The surgeon has been contacted and hopefully have an incision and drainage of the prepatellar bursa in the morning. Continue to elevate. Knee immobilizers in place. Toradol can be added for some pain control. May need outpatient intervenous antibiotic therapy will be determined at the time of the surgery. Status: Acute (2) Left leg cellulitis Status: Acute (3) Fever Status: Acute
[2017-05-24] MEDS: KETOROLAC 30 MG/ML 1 ML VIAL IVP SCH ×2 (16:32→23:46)
[2017-05-24] MEDS: DAPTOmycin 500 MG in SODIUM CHLORIDE 0.9% 50 ML IV SCH (16:44)
[2017-05-24] MEDS: MELOXICAM 7.5 MG TAB PO SCH (21:23)
[2017-05-24] MEDS: PANTOPRAZOLE 40 MG TABLET PO SCH (21:23)
[2017-05-24] MEDS: METOPROLOL SUCCINATE (ER) 100 MG TAB.ER.24H PO SCH (22:17)
[2017-05-25] MEDS: ACETAMINOPHEN TAB 325 MG TAB PO PRN ×2 (05:23→10:31)
[2017-05-25] MEDS: SODIUM CHLORIDE 0.9% 1,000 ML IV SCH ×3 (05:26→22:46)
[2017-05-25] MEDS: KETOROLAC 30 MG/ML 1 ML VIAL IVP SCH ×3 (05:29→18:48)
--- NOTE | 2017-05-25 06:30 | PN ---
PROGRESS NOTE DATE OF SERVICE: 05/24/2017 ATTENDING NOTE: The patient was seen and examined by me. I discussed with my nurse practitioner Ms. Hughes. Patient admitted with prepatellar bursitis and surrounding cellulitis: According to the patient, did get a bit worse overnight and better yet again after Silvadene cream was put. Infectious Disease, Dr. Mane, was consulted. is at the bedside. PHYSICAL EXAMINATION: On examination, afebrile. Lower extremity decreased redness, some tenderness around the prepatellar bursa area. Overall to me, the leg does not look worse, but concerns of the family, Infectious Disease was consulted. The patient is on IV antibiotic including vancomycin. Will see what Dr. Mane has to offer. The was also considering going to [facility] and I said at any point if they felt patient not improving to their satisfaction that is always an option. We will await input from Dr. Mane. MESSI / CATINA: [id number] /
[2017-05-25 07:39] LABS: Anion Gap 6 mmol/L; Blood Urea Nitrogen 14 mg/dL (9-20); Calcium 8.5 mg/dL (8.4-10.2); Carbon Dioxide 26 mmol/L (22-30); Chloride 107 mmol/L (98-107); Glucose 124 mg/dL (74-99); Non-African American GFR(MDRD) >60 (>60 ml/min/1.73 sqM); Potassium 4.5 mmol/L (3.5-5.1); Sodium 139 mmol/L (137-145)
[2017-05-25 07:44] LABS: Basophils % (A) 1 %; CH 30.4; CHCM 33.8; Eosinophils # (A) 0.3 k/uL (0-0.7); Eosinophils % (A) 4 %; HCT 39.1 % (39.0-53.0); HDW 3.04; HGB 13.3 gm/dL (13.0-17.5); Luc # (Auto) 0.21; Luc % (Auto) 3; Lymphocytes # (A) 1.1 k/uL (1.0-4.8); Lymphocytes % (A) 14 %; MCH 30.8 pg (25.0-35.0); MCHC 34.1 g/dL (31.0-37.0); MCV 90.4 fL (80.0-100.0); Mean Platelet Volume 7.7; Monocytes # (A) 0.5 k/uL (0-1.0); Monocytes % (A) 6 %; Neutrophils # (A) 5.9 k/uL (1.3-7.7); Neutrophils % (A) 73 %; RBC 4.33 m/uL (4.30-5.90); RDW 12.8 % (11.5-15.5); WBC 8.1 k/uL (3.8-10.6); WBC (Perox) 8.46
[2017-05-25] MEDS: ENOXAPARIN 40 MG/0.4 ML SYRINGE SQ SCH (08:26)
--- NOTE | 2017-05-25 08:36 | P.PN ---
Progress Note - Text Progress Note Date: 05/25/17 Patient is a very pleasant 47-year-old male who is seen and examined at bedside for evaluation for left lower extremity cellulitis and left knee prepatellar bursitis. Patient has been on IV antibiotics over the weekend without significant improvement. He continues to have significant swelling and with some pain over his left knee, lower medial thigh, and a medial upper-mid calf. He has been seen and examined by Dr. Mane in infectious disease who is recommending incision and drainage of the left knee. Patient again denies any specific injury to his left knee. He does have a history of prepatellar bursitis previously. She was seen and examined yesterday by Gwen Hall PA-C. He is currently scheduled to undergo incision and drainage of the left knee over the prepatellar bursa this afternoon. He is currently nothing by mouth status. Physical Exam: Patient is awake, alert, and oriented 3 Vital signs stable Good chest excursion with deep inspiration and expiration Abdomen soft nontender Left knee currently placed in knee immobilizer; immobilizer removed during physical examination Palpable fluid collection with mild fluctuance over the prepatellar bursa Evidence of swelling over the anterior aspect of the patellar Erythema over the left knee, medial lower thigh, and a medial upper-mid calf Mild pain with palpation over the left medial thigh, knee, and upper calf the areas of erythema Left calf is soft Extensor hallucis longus, plantarflexion, and dorsiflexion positive sustained bilateral lower extremities Assessment: Left lower extremity cellulitis Acute left prepatellar bursitis History of prepatellar bursitis, recurrent 4 Plan: 1. Patient has continued on IV antibiotics over the weekend without significant improvement of the symptoms. He has been seen and examined by infectious disease who is recommended irrigation debridement of the left knee for prepatellar bursitis. Patient is currently nothing by mouth status. At this time, we'll plan to proceed forward with surgical intervention this afternoon with irrigation and debridement of the left knee. Patient will continue with IV antibiotics as prescribed by Dr. Mane. Patient will continue to be nothing by mouth status. He may continue to keep his left knee immobilizer intact for comfort support as needed. We'll plan to hold his Lovenox today in anticipation for surgical intervention this afternoon. 2. Medicine and Dr. Mane in infectious disease to continue following the patient
[2017-05-25] MEDS: DAPTOmycin 500 MG in SODIUM CHLORIDE 0.9% 50 ML IV SCH (14:45)
[2017-05-25] MEDS ORDERED: IV FLUID CONTINUATION 1,000 ML IV ONE (16:14)
[2017-05-25] MEDS ORDERED: LACTATED RINGERS 1,000 ML IV ONE (16:37)
[2017-05-25] MEDS ORDERED: LIDOCAINE 1% INJ 10MG/ML (20 ML MDV) ONE (16:57)
[2017-05-25] MEDS ORDERED: PROPOFOL 10 MG/ML 20 ML VIAL IV ONE (16:57)
[2017-05-25] MEDS ORDERED: fentaNYL (PF) 50 MCG/ML 2 ML AMP ONE (16:57)
[2017-05-25] MEDS ORDERED: MIDAZOLAM 2 MG/2 ML VIAL ONE (16:57)
[2017-05-25] MEDS ORDERED: HYDROmorphone 0.5 MG/0.5 ML SYRINGE IVP PRN (17:09)
[2017-05-25] MEDS ORDERED: LACTATED RINGERS 1,000 ML IV SCH (17:15)
[2017-05-25] MEDS ORDERED: ceFAZolin 3,000 MG in SODIUM CHLORIDE 0.9% IRRIGATIO 3,000 ML IRRIGATION ONE (17:22)
[2017-05-25] MEDS ORDERED: HYDROcodone/APAP 7.5-325MG 1 EACH TAB PO PRN (17:56)
--- NOTE | 2017-05-25 17:56 | P.OP ---
Date of Procedure: 05/25/17 Preoperative Diagnosis: Left knee prepatellar bursitis Left lower extremity cellulitis Postoperative Diagnosis: Same No evidence of pus or purulent material No involvement of knee joint Anesthesia: GETA Pathology: other (Deep cultures of prepatellar bursa sent to [facility] 2) Condition: stable Disposition: PACU Description of Procedure: BRIEF OPERATIVE NOTE Preoperative Diagnosis: Left knee prepatellar bursitis, cellulitis Postoperative Diagnosis: Same plus no obvious evidence of purulence or pus, no evidence of intra-articular involvement Procedure: Irrigation and excisional debridement of prepatellar bursa Surgeon: Dr. Restrepo Angio Technologist: Eliud SMITH who is present throughout the entire the case persistence during positioning, dissection, exposure, visualization, and all crucial elements of the case as well as closure. Anesthesia: General anesthesia Estimated blood loss: Approximately 20 mL Specimen: Deep cultures 2 of prepatellar bursa sent to microbiology Complications: None apparent, no evidence of obvious purulence or pus Components implanted: None Disposition: To recovery room in good stable condition. OPERATIVE INDICATIONS The patient is a pleasant 47-year-old gentleman who has been having prepatellar knee swelling over the past several days. He is developing erythema over the area and was admitted to the hospital in regards to his cellulitis and swelling in his knee. 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 He has had history of prepatellar bursitis 4 in the past which normally resolves appropriately on its own and with some treatment. However on this and since it was not resolving and developed some erythema of his leg and persistent swelling. He also had some increased temperatures and was not responding well to conservative care even inpatient care with IV antibiotics. He continued of swelling which was waxing and waning with erythema there was also waxing and waning. He was followed by medicine as well as with infectious disease and we try to treat him conservatively as best possible. Despite this he continued have issues and multiple services felt that it was in the patient's best interest to pursue open irrigation and excisional debridement of the patellar bursa to try to alleviate his symptoms and to determine if there is specific infectious process. We discussed this at length with him and discussed the risk of occasions alternatives and benefits. We answered the patient's and the patient's family's questions best of our ability C can understand and they elected to proceed with surgical intervention. OPERATIVE SUMMARY After discussing all the risks, patient alternatives and benefits at length, the patient elected to proceed with surgical intervention, signed informed consent, and presented for their procedure. The patient was seen and examined in the preoperative holding area and the surgical site was marked. The patient was given antibiotics and brought to the operating room. The patient was transferred to the operating table in supine position being careful to pad any bony prominences and pressure points. Once he was well- positioned his airway and C-spine were protected he was sedated and intubated by anesthesia in standard sterile fashion without A, occasions. Once the airway and C-spine were secured his left knee was prepped and draped in a normal standard fashion being careful to pad any bony promises prepped and pressure points. Appropriate keystone protocol appropriate timeout was completed for his left knee irrigation and excisional debridement of the prepatellar bursa. An incision was made sharply through skin and subcu tissue at the medial aspect of the patellar tendon. I was able to dissect down through skin and subcu tissue into the prepatellar bursa. Upon entering the prepatellar bursa there is obvious sam of clear fluid. It was serous and slightly straw-colored. There is no purulence there is no obvious pus. There is no foul odor. It did not appear to be infectious. Deep cultures 2 were taken to be sent for micrology Gram stain and culture. The prepatellar cavity was evacuated and portions of the prepatellar bursa were dissected out and excised sharply and with Metzenbaum scissors. The tissue did not appear to be infectious. I was able to curet down through the patellar bursa. The bursa measured approximately 12 x 6 cm and I was able to scrape down the anterior aspects of the prepatellar bursa and remove any denuded tissue. The area was explored and they're not not appear to be any connection to the intra-articular joint. With the debridement and excisional debridement completed and we'll then copiously irrigated. The prepatellar bursa was copiously irrigated with 3 L antibiotic presented solution. There is no purulence there is no evidence of pus. There is no indication to the joint itself. We then decided proceed with closure. The skin was closed with nylon and the wound was dressed with Adaptic 4 x 4's ABDs and a gentle compressive dressing. The drapes were broken down the patient was woken up by anesthesia. Transferred back to his stretcher and brought to recovery room in good stable condition. He'll be admitted for pain control antibiotics treatment and management. It is okay for him to start to mobilize and weight-bear as tolerated. I do not have plans for repeat irrigation and debridement at this point.
--- NOTE | 2017-05-25 20:29 | P.PN ---
Progress Note - Text Progress Note Date: 05/25/17 DATE OF SERVICE: 05/25/2017 PRESENTING COMPLAINT: cellulitis of the left knee HISTORY OF PRESENT ILLNESS: 47-year-old male who presented with increasing pain and swelling of the left knee extending both above and below the knee with fever pain and swelling. Found to have cellulitis of the left knee and lower extremity and admitted for the same. INTERVAL HISTORY: 05/25/2017: Patient seen in follow-up today, no acute overnight events. Swelling to the left upper thigh knee and calf has greatly improved. Tenderness to the knee itself is also improved. ambulatory to and from the bathroom and in the hallways. however,orthopedics saw the patient and does not feel there is been significant improvement, infectious disease recommended I&D. Orthopedics we'll perform I&D of the left knee later today. Currently nothing by mouth, at the bedside. 05/24/2017: Overnight patient developed increased swelling to the left lower extremity knee calf and upper thigh area after application of Silvadene cream and a Kerlix wrap with Frankie wrap. He was also applied, extremity became very red and very warm and very tender patient was unable to walk. Frankie wrap removed Kerlix removed Silvadene washed off, pain improved.Silvadene was put back on this morning with a Kerlix wrap and orthopedics added an immobilizer. Patient's had some concerns about treatment and suggested if patient is not improved by tomorrow that perhaps a transfer to [facility] would be in order. Tolerating his diet ambulatory within the room and holly ways. 05/23/2017: Patient walking around the room, has a lot of energy. Left leg remains swollen knee tender. states the knee and leg feel some better but it does look like the swelling has spread a bit. Patient is ambulatory in the room and holly ways, tolerating his diet. REVIEW OF SYSTEMS: Done for constitutional ,cardiovascular, GI, pulmonary with relevant findings as above. CURRENT MEDICATIONS Xanax,[place], Motrin, Toradol, Mobic, Toprol-XL,Silvadene cream, morphine PHYSICAL EXAM VITAL SIGNS: temperature 99.7, pulse 62, respiratory rate 16, blood pressure 142/87, oxygen saturation 94% on room air. GENERAL APPEARANCE: Lying in bed, not in distress. EYES: Pupils equal. Conjunctiva normal. NECK: JVD not raised. Mass not palpable. RESPIRATORY: Respiratory effort normal. Lungs clear to auscultation. CARDIOVASCULAR: First and second sounds normal. No edema. ABDOMEN: Soft. Liver and spleen not palpable. No tenderness. No mass palpable. PSYCHIATRY: Alert and oriented x3. Mood and affect normal INTEGUMENT:left lower extremity red, swelling,tender erythema noted to the calf up to the upper thigh. INVESTIGATIONS: CBC and BMP unremarkable, Accu-Cheks noted. ASSESSMENT: -acute severe bursitis with acute cellulitis and the patient has previously had seen episode or 2 years ago causing sepsis, present on admission, status post incision and drainage of the left knee. -Essential hypertension. -anxiety not otherwise specified PLAN: continue IV antibiotic therapy with daptomycin per ID.incision and drainage of the left knee completed with orthopedics. specimens from the knee sent for culture. okay for patient to begin bearing weight to the operative leg, Plan of care discussed with the patient and at the bedside,they are in agreement with this plan. We will follow closely. ETHICAL HACKER statement: Patient was seen and examined by nurse practitioner Nichole Hughes and all elements of the case discussed with attending Dr. León
--- NOTE | 2017-05-25 21:59 | P.PN ---
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 After that he started to have some pain into his left knee. His experiences several times in the past with some swelling. He has been to the emergency center in the past for this problem with occasional improvement. He went to his local physician. Was thought that maybe he had gout and was treated for that. Despite that treatment he had no improvement and eventually presented to the emergency center because increasing pain and redness and swelling to the knee. He was quite concerned about a blood infection. Consequently the patient was seen by orthopedics and contemplation for incision and drainage has been made. Infectious disease consultation was requested because of ongoing erythema increasing erythema increasing pain and tenderness to the prepatellar area. He continues to have intermittent fever and chills. His fever is improved from the 102.8 at the time of admission. 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 Does not recall specific trauma us early had repetitive kneeling. He otherwise is not feeling poorly. No other acute joint troubles at this time. The case was discussed with the orthopedic service. Patient has ongoing intense erythema, tenderness and swelling. Since he had evidence of high-grade fever and lack of improvement surgical incision and drainage was requested. Objective - Vital Signs Vital signs: Vital Signs Temp 97.9 F 05/25/17 18:35 Pulse 81 05/25/17 20:35 Resp 16 05/25/17 18:35 BP 145/81 05/25/17 20:35 Pulse Ox 96 05/25/17 18:35 Intake & Output 05/25/17 05/25/17 05/26/17 06:59 18:59 06:59 Intake Total 1200 511 Output Total 20 Balance 1200 491 Intake: IV 511 Intake, IV Titration 1200 Amount Sodium Chloride 0.9% 1, 1200 000 ml @ 120 mls/hr IV . Q8H20M [facility] Rx#:[id number] Output: Estimated Blood Loss 20 Other: Voiding Method Toilet Toilet # Voids 1 1 - Exam Pleasant 47-year-old male, muscular but minimally overweight build postoperative HEENT: Anicteric conjunctiva are pink and moist nasal mucosa grossly intact without significant lesions, there is no thrush. Neck: The neck is supple without significant lymphadenopathy or thyromegaly. Lungs: Good bilateral air entry without significant crackles or wheezing. There is no significant bronchial sounds. There is no egophony or dullness. Heart: Regular rate and rhythm with an audible S1-S2, no S3 no S4. There is no significant murmur click or rub, PMI was nondisplaced. Abdomen: Positive bowel sounds soft and nontender without palpable masses or organomegaly. There was no guarding or rebound. Extremities: The upper extremities have excellent pulses they are symmetric, no significant petechiae or telangiectasia. No splinter hemorrhages were noted. The right leg is without any difficulties. The left lower extremity shows evidence of a surgical dressing in place from the recent patellar debridement. There is also erythema that travels down to the mid calf and above the knee. No significant lymphadenopathy is seen in the left groin or other areas. Neuro: Postoperative - Labs CBC & Chem 7: 05/25/17 06:47 05/25/17 06:47 Labs: Abnormal Lab Results - Last 24 Hours (Table) 05/25/17 Range/Units 06:47 Glucose 124 H (74-99) mg/dL Microbiology - Last 24 Hours (Table) 05/21/17 18:47 Blood Culture - Preliminary Blood No Growth after 96 hours 05/22/17 08:51 Blood Culture - Preliminary Blood No Growth after 72 hours 05/22/17 08:42 Blood Culture - Preliminary Blood No Growth after 72 hours Laboratory Results WBC 8.1 k/uL (3.8-10.6) 05/25/17 06:47 RBC 4.33 m/uL (4.30-5.90) 05/25/17 06:47 Hgb 13.3 gm/dL (13.0-17.5) 05/25/17 06:47 Hct 39.1 % (39.0-53.0) 05/25/17 06:47 MCV 90.4 fL (80.0-100.0) 05/25/17 06:47 MCH 30.8 pg (25.0-35.0) 05/25/17 06:47 MCHC 34.1 g/dL (31.0-37.0) 05/25/17 06:47 RDW 12.8 % (11.5-15.5) 05/25/17 06:47 Plt Count 194 k/uL (150-450) 05/25/17 06:47 Neutrophils % 73 % 05/25/17 06:47 Lymphocytes % 14 % 05/25/17 06:47 Monocytes % 6 % 05/25/17 06:47 Eosinophils % 4 % 05/25/17 06:47 Basophils % 1 % 05/25/17 06:47 Neutrophils # 5.9 k/uL (1.3-7.7) 05/25/17 06:47 Lymphocytes # 1.1 k/uL (1.0-4.8) 05/25/17 06:47 Monocytes # 0.5 k/uL (0-1.0) 05/25/17 06:47 Eosinophils # 0.3 k/uL (0-0.7) 05/25/17 06:47 Basophils # 0.0 k/uL (0-0.2) 05/25/17 06:47 PT 12.6 sec (9.0-12.0) H 05/21/17 18:47 INR 1.3 (<1.2) H 05/21/17 18:47 APTT 28.9 sec (22.0-30.0) 05/21/17 18:47 Sodium 139 mmol/L (137-145) 05/25/17 06:47 Potassium 4.5 mmol/L (3.5-5.1) 05/25/17 06:47 Chloride 107 mmol/L (98-107) 05/25/17 06:47 Carbon Dioxide 26 mmol/L (22-30) 05/25/17 06:47 Anion Gap 6 mmol/L 05/25/17 06:47 BUN 14 mg/dL (9-20) 05/25/17 06:47 Creatinine 0.91 mg/dL (0.66-1.25) 05/25/17 06:47 Est GFR (MDRD) Af Amer >60 (>60 ml/min/1.73 sqM) 05/25/17 06:47 Est GFR (MDRD) Non-Af >60 (>60 ml/min/1.73 sqM) 05/25/17 06:47 Glucose 124 mg/dL (74-99) H 05/25/17 06:47 Plasma Lactic Acid Antonio 1.4 mmol/L (0.7-2.0) 05/22/17 08:42 Uric Acid 3.2 mg/dL (3.5-8.5) L 05/21/17 18:47 Calcium 8.5 mg/dL (8.4-10.2) 05/25/17 06:47 Total Bilirubin 1.2 mg/dL (0.2-1.3) 05/21/17 18:47 AST 24 U/L (17-59) 05/21/17 18:47 ALT 46 U/L (21-72) 05/21/17 18:47 Alkaline Phosphatase 72 U/L (38-126) 05/21/17 18:47 C-Reactive Protein 204.9 mg/L (<10.0) H 05/21/17 18:47 Total Protein 6.7 g/dL (6.3-8.2) 05/21/17 18:47 Albumin 3.7 g/dL (3.5-5.0) 05/21/17 18:47 Urine Color Yellow 05/21/17 18:47 Urine Appearance Clear (Clear) 05/21/17 18:47 Urine pH 7.0 (5.0-8.0) 05/21/17 18:47 Ur Specific [place] 1.021 (1.001-1.035) 05/21/17 18:47 Urine Protein 1+ (Negative) H 05/21/17 18:47 Urine Glucose (UA) 3+ (Negative) H 05/21/17 18:47 Urine Ketones 1+ (Negative) H 05/21/17 18:47 Urine Blood Negative (Negative) 05/21/17 18:47 Urine Nitrite Negative (Negative) 05/21/17 18:47 Urine Bilirubin Negative (Negative) 05/21/17 18:47 Urine Urobilinogen 3.0 mg/dL (<2.0) 05/21/17 18:47 Ur Leukocyte Esterase Negative (Negative) 05/21/17 18:47 Urine RBC <1 /hpf (0-5) 05/21/17 18:47 Urine WBC <1 /hpf (0-5) 05/21/17 18:47 Ur Squamous Epith Cells <1 /hpf (0-4) 05/21/17 18:47 Urine Mucus Rare /hpf (None) H 05/21/17 18:47 Vancomycin Trough 10.0 ug/mL 05/24/17 08:12 Microbiology 05/21/17 18:47 Blood Blood Culture - Preliminary No Growth after 96 hours 05/22/17 08:51 Blood Blood Culture - Preliminary No Growth after 72 hours 05/22/17 08:42 Blood Blood Culture - Preliminary No Growth after 72 hours 05/21/17 18:47 Urine,Voided Urine Culture - Final Assessment and Plan (1) Septic prepatellar bursitis of left knee Narrative/Plan: Very pleasant 87-year-old male presents to Hospital significant pain and swelling to his left knee. 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 After that he develops to begin pain swelling erythema to the knee and is not she's had a waxing and waning course but is now considerably worse. Is increasing amounts of erythema. We'll alter vancomycin to daptomycin at this time for its bactericidal effect. Continue to elevate. Knee immobilizers in place. Toradol can be added for some pain control. May need outpatient intervenous antibiotic therapy will be determined at the time of the surgery. The surgeon has noted that a thin serous material was found from the prepatellar bursa at the time of the incision and drainage, it was not caro pus. Most less likely to be staphylococcal or streptococcal is still likely. The patient had significant symptoms consistent with infection. Hopefully material was sent for crystal analysis also. Status: Acute (2) Left leg cellulitis Status: Acute (3) Fever Status: Acute
[2017-05-25] MEDS: MELOXICAM 7.5 MG TAB PO SCH (22:44)
[2017-05-25] MEDS: METOPROLOL SUCCINATE (ER) 100 MG TAB.ER.24H PO SCH (22:45)
[2017-05-25] MEDS: PANTOPRAZOLE 40 MG TABLET PO SCH (22:45)
[2017-05-26] MEDS: KETOROLAC 30 MG/ML 1 ML VIAL IVP SCH ×3 (01:00→12:04)
--- NOTE | 2017-05-26 06:34 | PN ---
PROGRESS NOTE DATE OF SERVICE: 05/25/2017 ATTENDING NOTE: Patient was seen and examined by me. I discussed with nurse practitioner, Ms. Hughes. Patient admitted with left leg cellulitis and prepatellar bursitis. Due to go down for I&D today. The swelling and redness has greatly improved. PHYSICAL EXAMINATION: On examination, afebrile. Lungs are clear. CARDIOVASCULAR: First and second sounds normal. Left leg decreased redness, tenderness, swelling. Decreased swelling of the prepatellar bursal area. INVESTIGATIONS: White count 8.1, potassium 4.5. ASSESSMENT: Prepatellar bursitis with cellulitis left lower extremity, clinically improving. Patient is on IV daptomycin and Silvadene cream. The patient is awaiting I&D. Care was discussed with the patient. Will follow. MMODL / IJN: [id number] /
[2017-05-26 07:44] LABS: Anion Gap 9 mmol/L; Blood Urea Nitrogen 16 mg/dL (9-20); Calcium 8.5 mg/dL (8.4-10.2); Carbon Dioxide 25 mmol/L (22-30); Chloride 104 mmol/L (98-107); Glucose 133 mg/dL (74-99); Non-African American GFR(MDRD) >60 (>60 ml/min/1.73 sqM); Potassium 4.6 mmol/L (3.5-5.1); Sodium 138 mmol/L (137-145)
[2017-05-26 08:00] VITALS: BP 151/97; PULSE 60; RESP 12; TEMP 99.1
[2017-05-26] MEDS: SODIUM CHLORIDE 0.9% 1,000 ML IV SCH (08:19)
--- NOTE | 2017-05-26 08:44 | P.PN ---
Progress Note - Text Progress Note Date: 05/26/17 Patient is a very pleasant 47-year-old male who is seen and examined at bedside for evaluation for left lower extremity cellulitis and left knee prepatellar bursitis after undergoing irrigation and excisional debridement of prepatellar bursa yesterday, 05/25/2017. He does admit at the bedside this morning he does feel better than he did previously. He continues to be seen and examined by medicine and infectious disease. He has been able to ambulate on the left lower extremity without significant difficulty. He has been eating without difficulty. He has kept the dressing over the left knee clean, dry, and intact. He has no new complaints this morning. Patient again denies any specific injury to his left knee. He does have a history of prepatellar bursitis previously. Physical Exam: Patient is awake, alert, and oriented 3 Vital signs stable Good chest excursion with deep inspiration and expiration Abdomen soft nontender Dressing over the left knee is clean, dry, and intact; dressing is removed and replaced and physical examination No evidence of significant palpable fluid collection over the prepatellar bursa Evidence of swelling over the anterior aspect of the patellar Erythema over the left knee and a medial upper-mid calf; erythema over the medial thigh has improved as compared to yesterday No significant pain with palpation over the left medial thigh, knee, and upper calf the areas of erythema Left calf is soft nontender Extensor hallucis longus, plantarflexion, and dorsiflexion positive sustained bilateral lower extremities Pertinent studies: Left knee Gram stain wound culture(s) preliminary: Rare gram-positive cocci, rare polymorphonuclear leukocytes Assessment: Status post irrigation and excisional debridement of prepatellar bursa Left lower extremity cellulitis Acute left prepatellar bursitis History of prepatellar bursitis, recurrent 4 Plan: 1. After undergoing irrigation and excisional debridement of prepatellar bursa yesterday, patient does feel he is been having some improvement. He is not currently experiencing significant pain in his left knee. He has been able to do some ambulation on the left lower extremity without difficulty. His pain has been well-controlled. He does not have significant active drainage over the incision site. He continues to be seen and examined by medicine and infectious disease. At this time, he'll be cleared for discharge from an orthopedic standpoint once cleared by other providers. We discussed he should keep his dressing clean, dry, and intact. He may elevate the left lower extremity and apply ice over the incision site for comfort support as needed. He should avoid excessive bending and kneeling on his left knee. He may ambulate to tolerance on the left lower extremity. He may shower without a dressing over his left knee after incision has remained dry without active drainage for 72 hours. We'll plan have him follow up in approximately 1 week for further evaluation. He should keep sutures over the left knee intact. We discussed sutures will remain intact for approximately 2 weeks postoperatively. We also discussed he will continue to be off work. We did discuss he may be able to return to work earlier on light duties that allow him to avoid kneeling and excessive activities with the left knee. Culture results taken during surgical intervention are still pending. 2. Patient will continue with antibiotic regimen as set forth by Dr. Mane in infectious disease. 3. Medicine will continue to follow patient closely.
[2017-05-26] MEDS: DAPTOmycin 500 MG in SODIUM CHLORIDE 0.9% 50 ML IV SCH (12:31)
--- NOTE | 2017-05-26 18:42 | P.DS ---
Providers Date of admission: 05/21/17 21:22 Expected date of discharge: 05/26/17 Attending physician: Tutu León Consults: 05/21/17 20:47 Consult Physician Stat Consulting Provider: Cristi Anders Consult Reason/Comments: Left knee swelling, Septic arthritis? Do you want consulting provider notified?: Yes, Notify in am 05/24/17 08:22 Consult Physician Urgent Consulting Provider: Tim Mane Consult Reason/Comments: Eval LLE cellulitis/prepatellar bursitis Do you want consulting provider notified?: Yes Primary care physician: [facility] Course: FINAL DIAGNOSES: -acute severe bursitis with acute cellulitis with previous episodes 2 years ago , causing sepsis, present on admission, status post irrigation and excisional debridement of prepatellar bursa. -Essential hypertension. 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 Found to have cellulitis of the left knee and left lower extremity admitted for the same. Home medications ordered, imaging obtained Orthopedics and infectious disease consulted. Patient was found to have a prepatellar bursitis lower extremity cellulitis, broad-spectrum IV antibiotics of vancomycin and Zosyn were ordered, decision made to treat this nonsurgically 8 initially as it was not felt to be a septic joint.. Left knee initially became more red and inflamed, heat, Silvadene cream, dressing, and an immobilizer were all utilized. With minimal improvement. Infectious disease saw the patient due to lack of an improvement evidence of a high-grade fever it was felt incision and drainage was necessary. Orthopedics took the patient for the above listed procedure, no purulence found no pus irrigation and excisional debridement completed. Antibiotics changed to daptomycin for its bacteriocidal affect. Left knee and upper thigh and lower calf much improved redness is gone down swelling is also gone down the incision covered with a dry dressing. Pain well-controlled, patient's ambulatory in the room and hallway, tolerating his diet moving his bowels anxious to get home. Orthopedics provided incisional care and work related information for patient's return to work. Antibiotics to continue per infectious disease, patient's overall condition has stabilized and is appropriate for discharge to home. PHYSICAL EXAM: CARDIOVASCULAR: First and second sounds noted no edema. RESPIRATORY: Respiratory effort normal lung sounds clear to auscultation bilaterally. MUSKULOSKELETAL: Left knee has full range of motion redness and swelling noted. , Immobilizer in place INTEGUMENT: Left knee incision covered with a dry dressing no drainage noted. PSYCHIATRY: Alert and oriented 3 mood and affect normal Patient was seen and examined by nurse practitioner Nichole Hughes in all elements of the case discussed with attending Dr. León DISPOSITION: Home to the care of his Plan - Discharge Summary New Discharge Prescriptions: New Cefuroxime Axetil [Ceftin] 500 mg PO BID #20 tab HYDROcodone/APAP 7.5-325MG [[place] 7.5-325] 1 each PO QID PRN #28 tab PRN Reason: Pain Scale 1 To 5 Continue Omeprazole 40 mg PO HS Metoprolol Succinate (ER) [Toprol XL] 100 mg PO HS Meloxicam [Mobic] 15 mg PO HS ALPRAZolam [Xanax] 0.25 mg PO Q12H PRN PRN Reason: Anxiety Discontinued Levofloxacin [Levaquin] 750 mg PO HS Discharge Medication List ALPRAZolam [Xanax] 0.25 mg PO Q12H PRN 05/21/17 [History] Meloxicam [Mobic] 15 mg PO HS 05/21/17 [History] Metoprolol Succinate (ER) [Toprol XL] 100 mg PO HS 05/21/17 [History] Omeprazole 40 mg PO HS 05/21/17 [History] Cefuroxime Axetil [Ceftin] 500 mg PO BID #20 tab 05/26/17 [Rx] HYDROcodone/APAP 7.5-325MG [[place] 7.5-325] 1 each PO QID PRN #28 tab 05/26/17 [ Rx] Follow up Appointment(s)/Referral(s): Eliud Prather PAC [PHYSICIAN STAMP [employer]OUNTER] - 1 Week (Patient may follow-up with Eliud Prather PA-C or Dr. Igor Restrepo at [facility] in 1 week following discharge. ) Darren Rodriguez DO [Primary Care Provider] - 1-2 days Patient Instructions/Handouts: *Surgery [facility] - Knee Arthroscopy Home Instructions, Swollen Knee Joint (GEN), Exercise Safety (GEN) Activity/Diet/Wound Care/Special Instructions: 1. Keep dressing over the left knee clean, dry, and intact 2. Elevate the left lower extremity and apply ice over the incision site for comfort support as needed 3. Avoid excessive bending and kneeling on his left knee 4. Ambulate to tolerance on the left lower extremity 5. Patient may shower without a dressing over his left knee after incision has remained dry without active drainage for 72 hours 6. Patient will follow up in approximately 1 week for further evaluation 7. Keep sutures over the left knee intact; Sutures to remain intact for approximately 2 weeks postoperatively Discharge Disposition: HOME SELF-CARE
--- NOTE | 2017-05-26 22:02 | P.PN ---
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 After that he started to have some pain into his left knee. His experiences several times in the past with some swelling. He has been to the emergency center in the past for this problem with occasional improvement. He went to his local physician. Was thought that maybe he had gout and was treated for that. Despite that treatment he had no improvement and eventually presented to the emergency center because increasing pain and redness and swelling to the knee. He was quite concerned about a blood infection. Consequently the patient was seen by orthopedics and contemplation for incision and drainage has been made. Infectious disease consultation was requested because of ongoing erythema increasing erythema increasing pain and tenderness to the prepatellar area. He continues to have intermittent fever and chills. His fever is improved from the 102.8 at the time of admission. 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 Does not recall specific trauma us early had repetitive kneeling. He otherwise is not feeling poorly. No other acute joint troubles at this time. The case was discussed with the orthopedic service. He subsequently was taken to the operating room and had an incision and drainage performed. A large amount of serous material was removed from the prepatellar space and it was debrided. Gram stain gram-positive cocci. Culture negative so far. Patient feels considerably better today anxious for discharge. Objective - Vital Signs Vital signs: Vital Signs Temp 99.1 F 05/26/17 07:59 Pulse 60 05/26/17 07:59 Resp 12 05/26/17 07:59 BP 151/97 05/26/17 07:59 Pulse Ox 96 05/26/17 07:59 Intake & Output 05/26/17 05/26/17 05/27/17 06:59 18:59 06:59 Intake Total 0 Balance 1919 Intake: IV 1919 Sodium Chloride 0.9% 1, 0 000 ml @ 120 mls/hr IV . Q8H20M [facility] Rx#:[id number] Other: # Voids 1 - Exam Pleasant 47-year-old male, muscular but minimally overweight build postoperative HEENT: Anicteric conjunctiva are pink and moist nasal mucosa grossly intact without significant lesions, there is no thrush. Neck: The neck is supple without significant lymphadenopathy or thyromegaly. Lungs: Good bilateral air entry without significant crackles or wheezing. There is no significant bronchial sounds. There is no egophony or dullness. Heart: Regular rate and rhythm with an audible S1-S2, no S3 no S4. There is no significant murmur click or rub, PMI was nondisplaced. Abdomen: Positive bowel sounds soft and nontender without palpable masses or organomegaly. There was no guarding or rebound. Extremities: The upper extremities have excellent pulses they are symmetric, no significant petechiae or telangiectasia. No splinter hemorrhages were noted. The right leg is without any difficulties. The left lower extremity shows evidence of a surgical dressing in place from the recent patellar debridement. The dense erythema has improved. A large effusion has improved. pen tender to touch but improved. No significant lymphadenopathy is seen in the left groin or other areas. Neuro: Awake alert oriented to person place and time - Labs CBC & Chem 7: 05/25/17 06:47 05/26/17 06:57 Labs: Abnormal Lab Results - Last 24 Hours (Table) 05/26/17 Range/Units 06:57 Glucose 133 H (74-99) mg/dL Microbiology - Last 24 Hours (Table) 05/21/17 18:47 Blood Culture - Preliminary Blood No Growth after 120 hours 05/25/17 17:25 Gram Stain - Preliminary Knee - Left Wound Culture - Preliminary 05/25/17 17:25 Gram Stain - Preliminary Knee - Left Wound Culture - Preliminary 05/22/17 08:51 Blood Culture - Preliminary Blood No Growth after 96 hours 05/22/17 08:42 Blood Culture - Preliminary Blood No Growth after 96 hours 05/25/17 17:25 Anaerobic Culture - Preliminary Knee - Left 05/25/17 17:25 Anaerobic Culture - Preliminary Knee - Left Laboratory Results WBC 8.1 k/uL (3.8-10.6) 05/25/17 06:47 RBC 4.33 m/uL (4.30-5.90) 05/25/17 06:47 Hgb 13.3 gm/dL (13.0-17.5) 05/25/17 06:47 Hct 39.1 % (39.0-53.0) 05/25/17 06:47 MCV 90.4 fL (80.0-100.0) 05/25/17 06:47 MCH 30.8 pg (25.0-35.0) 05/25/17 06:47 MCHC 34.1 g/dL (31.0-37.0) 05/25/17 06:47 RDW 12.8 % (11.5-15.5) 05/25/17 06:47 Plt Count 194 k/uL (150-450) 05/25/17 06:47 Neutrophils % 73 % 05/25/17 06:47 Lymphocytes % 14 % 05/25/17 06:47 Monocytes % 6 % 05/25/17 06:47 Eosinophils % 4 % 05/25/17 06:47 Basophils % 1 % 05/25/17 06:47 Neutrophils # 5.9 k/uL (1.3-7.7) 05/25/17 06:47 Lymphocytes # 1.1 k/uL (1.0-4.8) 05/25/17 06:47 Monocytes # 0.5 k/uL (0-1.0) 05/25/17 06:47 Eosinophils # 0.3 k/uL (0-0.7) 05/25/17 06:47 Basophils # 0.0 k/uL (0-0.2) 05/25/17 06:47 PT 12.6 sec (9.0-12.0) H 05/21/17 18:47 INR 1.3 (<1.2) H 05/21/17 18:47 APTT 28.9 sec (22.0-30.0) 05/21/17 18:47 Sodium 138 mmol/L (137-145) 05/26/17 06:57 Potassium 4.6 mmol/L (3.5-5.1) 05/26/17 06:57 Chloride 104 mmol/L (98-107) 05/26/17 06:57 Carbon Dioxide 25 mmol/L (22-30) 05/26/17 06:57 Anion Gap 9 mmol/L 05/26/17 06:57 BUN 16 mg/dL (9-20) 05/26/17 06:57 Creatinine 0.97 mg/dL (0.66-1.25) 05/26/17 06:57 Est GFR (MDRD) Af Amer >60 (>60 ml/min/1.73 sqM) 05/26/17 06:57 Est GFR (MDRD) Non-Af >60 (>60 ml/min/1.73 sqM) 05/26/17 06:57 Glucose 133 mg/dL (74-99) H 05/26/17 06:57 Plasma Lactic Acid Antonio 1.4 mmol/L (0.7-2.0) 05/22/17 08:42 Uric Acid 3.2 mg/dL (3.5-8.5) L 05/21/17 18:47 Calcium 8.5 mg/dL (8.4-10.2) 05/26/17 06:57 Total Bilirubin 1.2 mg/dL (0.2-1.3) 05/21/17 18:47 AST 24 U/L (17-59) 05/21/17 18:47 ALT 46 U/L (21-72) 05/21/17 18:47 Alkaline Phosphatase 72 U/L (38-126) 05/21/17 18:47 C-Reactive Protein 204.9 mg/L (<10.0) H 05/21/17 18:47 Total Protein 6.7 g/dL (6.3-8.2) 05/21/17 18:47 Albumin 3.7 g/dL (3.5-5.0) 05/21/17 18:47 Urine Color Yellow 05/21/17 18:47 Urine Appearance Clear (Clear) 05/21/17 18:47 Urine pH 7.0 (5.0-8.0) 05/21/17 18:47 Ur Specific [place] 1.021 (1.001-1.035) 05/21/17 18:47 Urine Protein 1+ (Negative) H 05/21/17 18:47 Urine Glucose (UA) 3+ (Negative) H 05/21/17 18:47 Urine Ketones 1+ (Negative) H 05/21/17 18:47 Urine Blood Negative (Negative) 05/21/17 18:47 Urine Nitrite Negative (Negative) 05/21/17 18:47 Urine Bilirubin Negative (Negative) 05/21/17 18:47 Urine Urobilinogen 3.0 mg/dL (<2.0) 05/21/17 18:47 Ur Leukocyte Esterase Negative (Negative) 05/21/17 18:47 Urine RBC <1 /hpf (0-5) 05/21/17 18:47 Urine WBC <1 /hpf (0-5) 05/21/17 18:47 Ur Squamous Epith Cells <1 /hpf (0-4) 05/21/17 18:47 Urine Mucus Rare /hpf (None) H 05/21/17 18:47 Vancomycin Trough 10.0 ug/mL 05/24/17 08:12 Microbiology 05/21/17 18:47 Blood Blood Culture - Preliminary No Growth after 120 hours 05/25/17 17:25 Knee - Left Gram Stain - Preliminary 05/25/17 17:25 Knee - Left Wound Culture - Preliminary 05/25/17 17:25 Knee - Left Gram Stain - Preliminary 05/25/17 17:25 Knee - Left Wound Culture - Preliminary 05/22/17 08:51 Blood Blood Culture - Preliminary No Growth after 96 hours 05/22/17 08:42 Blood Blood Culture - Preliminary No Growth after 96 hours 05/25/17 17:25 Knee - Left Anaerobic Culture - Preliminary 05/25/17 17:25 Knee - Left Anaerobic Culture - Preliminary 05/21/17 18:47 Urine,Voided Urine Culture - Final Assessment and Plan (1) Septic prepatellar bursitis of left knee Narrative/Plan: Very pleasant 87-year-old male presents to Hospital significant pain and swelling to his left knee. 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 After that he develops to begin pain swelling erythema to the knee and is not she's had a waxing and waning course but is now considerably worse. Is increasing amounts of erythema. We'll alter vancomycin to daptomycin at this time for its bactericidal effect. Continue to elevate. Knee immobilizers in place. Toradol can be added for some pain control. May need outpatient intervenous antibiotic therapy will be determined at the time of the surgery. The surgeon has noted that a thin serous material was found from the prepatellar bursa at the time of the incision and drainage, it was not caro pus. Most less likely to be staphylococcal and streptococcal infection is more likely. The patient had significant symptoms consistent with infection at admission. The patient is now markedly improved. We'll plan on completing a course of oral antibiotic therapy therapy and discharged with cefuroxime. He'll return to work as per the orthopedic surgeon recommendation, he can follow in the office as needed. Status: Acute (2) Left leg cellulitis Status: Acute (3) Fever Status: Acute
--- NOTE | 2017-05-27 06:20 | DS ---
DISCHARGE SUMMARY DATE OF SERVICE: 05/26/2017 ATTENDING NOTE: The patient was seen and examined by me. I discussed with my nurse practitioner, Ms. Hughes. The patient is feeling much better. The patient is status post I&D, clear liquid was removed, no pus was noted. Per Dr. Mane, patient is okay to go home. On examination, lungs are clear. CARDIOVASCULAR: First and second sounds normal. FINAL DIAGNOSIS: Acute prepatellar bursitis with acute cellulitis of left lower extremity from local trauma. Care was discussed with the patient. Local wound care and Ceftin as per Dr. Mane. MMODL / IJN: [id number] /
== END 2017-05-26 15:00 | disposition home or self-care (01) | DRG 854 ==
LOC: EC 17:49 → 3SUR 21:22
PROVIDERS: ADMIT Hospitalist; ATTEND Hospitalist
PROC: 0MBP0ZZ Excision of Left Knee Bursa and Ligament, Open Approach (ICD-10-PCS; principal; 2017-05-25 07:30)
DX: A41.9 Sepsis, unspecified organism (principal); L03.116 Cellulitis of left lower limb; E11.65 Type 2 diabetes mellitus with hyperglycemia; I10 Essential (primary) hypertension; F41.9 Anxiety disorder, unspecified; M19.90 Unspecified osteoarthritis, unspecified site; M10.9 Gout, unspecified; M70.42 Prepatellar bursitis, left knee; Z79.899 Other long term (current) drug therapy; Z88.8 Allergy status to other drugs, medicaments and biological substances
CPT/HCPCS: 36415; 80048; 80053; 80202; 81001; 83605; 84550; 85025; 85610; 85730; 86140; 87040; 87070; 87075; 87086; 87205; 93005; 96360; 96361; 96365; 96367; 99285

== ENCOUNTER → 2018-03-05 | Outpatient (CLI) | payer BC ==
--- NOTE | 2018-03-05 11:31 | XR ---
EXAMINATION TYPE: XR chest 2V DATE OF EXAM: 03/05/2018 COMPARISON: NONE HISTORY: Shortness of breath TECHNIQUE: Frontal and lateral views of the chest are obtained. FINDINGS: There is no focal air space opacity, pleural effusion, or pneumothorax seen. The cardiac silhouette size is within normal limits. The osseous structures are intact. Multilevel moderate deg enerative changes of the thoracic spine with a mild dextroconvex curvature the thoracic spine are see n. IMPRESSION: No acute cardiopulmonary process.
== END | disposition home or self-care (01) ==
LOC: RADXRMAIN 10:40
PROVIDERS: ATTEND Family Medicine
DX: R06.02 Shortness of breath (principal)
CPT/HCPCS: 71046

== ENCOUNTER 2018-05-05 09:22 | Day surgery (SDC) | payer BC ==
[2018-05-04 11:09] VITALS: BMI 30.5
[~2018-05-05 09:22] MED LIST: LACTATED RINGERS 1,000 ML IV SCH; LIDOCAINE 1% 20 ML VIAL (10MG/ML) FOR IV START INTRADERMA PRN
--- NOTE | 2018-05-05 09:38 | P.GSHP ---
History of Present Illness H&P Date: 05/05/18 CHIEF COMPLAINT: Colon screen HISTORY OF PRESENT ILLNESS: The patient is a 48-year-old female who presents for colon screen. Lower endoscopy was offered for further evaluation and management. PAST MEDICAL HISTORY: Please see list. PAST SURGICAL HISTORY: Please see list. MEDICATIONS: Please see list. ALLERGIES: Please see list. SOCIAL HISTORY: No illicit drug use FAMILY HISTORY: No reports of Crohn disease or ulcerative colitis. REVIEW OF ORGAN SYSTEMS: CONSTITUTIONAL: No reports of fevers or chills. PHYSICAL EXAM: VITAL SIGNS: Stable GENERAL: Well-developed pleasant in no acute distress. HEENT: No scleral icterus. Extraocular movements grossly intact. Moist buccal mucosa. NECK: Supple without lymphadenopathy. CHEST: Unlabored respirations. Equal bilateral excursions. CARDIOVASCULAR: Regular rate and rhythm. Distal 2+ pulses. ABDOMEN: Soft, nontender, nondistended. MUSCULOSKELETAL: No clubbing, cyanosis, or edema. ASSESSMENT: 1. Colon screen. PLAN: 1. Recommend proceeding with a lower endoscopy Past Medical History Past Medical History: GERD/Reflux, Hypertension, Osteoarthritis (OA) Additional Past Medical History / Comment(s): hiatal hernia,possible asthma History of Any Multi-Drug Resistant Organisms: None Reported Past Surgical History: Orthopedic Surgery Additional Past Surgical History / Comment(s): sinus surg,left knee procedure Past Anesthesia/Blood Transfusion Reactions: No Reported Reaction Additional Past Anesthesia/Blood Transfusion Reaction / Comment(s): spouse states "difficult intubation with sinus surgery" Smoking Status: Never smoker - Past Family History Mother Family Medical History: No Reported History Medications and Allergies Home Medications Medication Instructions Recorded Confirmed Type ALPRAZolam [Xanax] 0.25 mg PO Q12H PRN 05/21/17 05/04/18 History Meloxicam [Mobic] 15 mg PO HS 05/21/17 05/04/18 History Omeprazole 40 mg PO HS 05/21/17 05/04/18 History Irbesartan [Avapro] 300 mg PO HS 05/04/18 05/04/18 History Pantoprazole Sodium 40 mg PO DAILY 05/04/18 05/04/18 History Ranitidine HCl [Zantac] 150 mg PO DAILY 05/04/18 05/04/18 History Allergies Allergy/AdvReac Type Severity Reaction Status Date / Time MINI Inhibitors AdvReac Cough Verified 05/04/18 10:56
[2018-05-05 09:46] VITALS: TEMP 97.5
[2018-05-05] MEDS ORDERED: LIDOCAINE 1% INJ 10MG/ML (20 ML MDV) ONE (10:34)
[2018-05-05] MEDS ORDERED: PROPOFOL 10 MG/ML 20 ML VIAL IV ONE (10:34)
--- NOTE | 2018-05-05 10:58 | P.PCN ---
Date of Procedure: 05/05/18 Description of Procedure: PREOPERATIVE DIAGNOSIS: Colonoscopy screening, first POSTOPERATIVE DIAGNOSIS: Colonoscopy screening, first Proximal ascending colon tubular adenoma Descending colon adenoma Rectal adenoma Sigmoid diverticulosis OPERATION: Colonoscopy to the ileocecal valve and appendiceal orifice. Colonoscopy with multiple hot snare polypectomies SURGEON: Janie Figueroa MD. ANESTHESIA: MAC. INDICATIONS: The patient is a 48-year-old male who presents for colonoscopy screening. This is his first colonoscopy. Benefits and risks were described and informed consent was obtained. DESCRIPTION OF PROCEDURE: The patient had undergone Gatorade, MiraLAX and Dulcolax prep. He had been brought into the operating room and laid in the left lateral decubitus position. After adequate intravenous sedation, the rectum was examined with 2% lidocaine jelly. No external hemorrhoids were encountered. The rectal tone was within normal limits. No lesions were palpated in the rectal vault. An Olympus colonoscope was advanced until the ileocecal valve and appendiceal orifice were clearly viewed. The prep was good with visualization of the mucosal folds. The scope was removed with visualization of each mucosal fold. Moderate sigmoid diverticulosis was encountered. Multiple tumor adenomas treated with snare polypectomy. No evidence of focal colitis was found. Retroflexion of the scope demonstrated no internal hemorrhoids without active bleeding or inflammation. The colon was desufflated. The patient had tolerated the procedure well. Withdrawal time was over 6 minutes. FINDINGS: No internal hemorrhoids No external hemorrhoids Prostate was smooth and without abnormality No arteriovenous malformations Moderate to severe diverticulosis without diverticulitis Removal of 3 polyps: - Snare polypectomy at proximal ascending colon, 8 mm tubulovillous adenoma polyp. - Snare polypectomy at descending colon (30 cm from anal verge), 10 mm tubulovillous adenoma polyp. - Snare polypectomy at rectum (10 cm from anal verge) 15 mm tubulovillous adenoma polyp. No focal colitis. RECOMMENDATIONS: Multiple high-risk polyps identified, repeat colonoscopy one year2018 Plan - Discharge Summary New Discharge Prescriptions: No Action Meloxicam [Mobic] 15 mg PO HS ALPRAZolam [Xanax] 0.25 mg PO Q12H PRN PRN Reason: Anxiety Ranitidine HCl [Zantac] 150 mg PO DAILY Irbesartan [Avapro] 300 mg PO HS Pantoprazole Sodium 40 mg PO DAILY Discharge Medication List ALPRAZolam [Xanax] 0.25 mg PO Q12H PRN 05/21/17 [History] Meloxicam [Mobic] 15 mg PO HS 05/21/17 [History] Irbesartan [Avapro] 300 mg PO HS 05/04/18 [History] Pantoprazole Sodium 40 mg PO DAILY 05/04/18 [History] Ranitidine HCl [Zantac] 150 mg PO DAILY 05/04/18 [History]
[2018-05-05 11:32] VITALS: BP 127/86; PULSE 63; RESP 18
== END 2018-05-05 11:54 | disposition home or self-care (01) ==
LOC: ORWHC2ENDO 09:22
PROVIDERS: ATTEND Surgery Plastic and Reconstructive Surgery
DX: Z12.11 Encounter for screening for malignant neoplasm of colon (principal); D12.2 Benign neoplasm of ascending colon; D12.5 Benign neoplasm of sigmoid colon; D12.8 Benign neoplasm of rectum; K57.30 Diverticulosis of large intestine without perforation or abscess without bleeding; K21.9 Gastro-esophageal reflux disease without esophagitis; I10 Essential (primary) hypertension; M19.90 Unspecified osteoarthritis, unspecified site; Z79.1 Long term (current) use of non-steroidal anti-inflammatories (NSAID); Z79.899 Other long term (current) drug therapy; Z88.8 Allergy status to other drugs, medicaments and biological substances; Z91.030 Bee allergy status
CPT/HCPCS: 88305; 45385; J2001; J2704

== ENCOUNTER 2018-09-14 20:11 | Observation (INO) | payer BC ==
--- NOTE | 2018-09-14 21:08 | ED ---
Skin/Abscess/FB HPI - General Source: patient Mode of arrival: ambulatory Limitations: no limitations <Coby Cleveland - Last Filed: 09/15/18 04:19> <Diomedes Durán - Last Filed: 09/15/18 09:08> - General Chief complaint: Skin/Abscess/Foreign Body Stated complaint: Knee infection Time Seen by Provider: 09/14/18 20:30 - History of Present Illness Initial comments: 48-year-old male patient presents to the emergency department today for evaluation of right knee pain, swelling, and redness. Patient states that pain and swelling started early this morning and has been worsening since. States he did see his primary care physician was told to come to the emergency department if symptoms worsen. 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 Patient states he has had an infected bursitis of the left knee in the past and this feels similar. Patient states he has been febrile and chilled. States that the knee feels swollen and difficult to completely flex. Denies any difficulty with extension. States he is having some tingling to the bilateral calves but knows numbness. Denies any known injury to the leg. Patient denies any recent rash, shortness breath, chest pain , abdominal pain, nausea, vomiting, diarrhea, constipation, back pain, dizziness , weakness, hematuria, dysuria, urinary urgency, urinary frequency, headache, visual changes, or any other complaints. (Coby Cleveland) - Related Data Home Medications Medication Instructions Recorded Confirmed Meloxicam [Mobic] 15 mg PO HS 05/21/17 09/14/18 Irbesartan [Avapro] 300 mg PO HS 05/04/18 09/14/18 Pantoprazole Sodium 40 mg PO DAILY 05/04/18 09/14/18 Ranitidine HCl [Zantac] 150 mg PO HS 05/04/18 09/14/18 Cefuroxime Axetil [Ceftin] 500 mg PO Q12H 09/14/18 09/14/18 amLODIPine [Norvasc] 5 mg PO HS 09/14/18 09/14/18 Allergies Allergy/AdvReac Type Severity Reaction Status Date / Time MINI Inhibitors AdvReac Cough Verified 09/14/18 20:52 Review of Systems ROS Other: All systems not noted in ROS Statement are negative. <Coby Clevleand - Last Filed: 09/15/18 04:19> ROS Other: All systems not noted in ROS Statement are negative. <Diomdees Durán - Last Filed: 09/15/18 09:08> ROS Statement: Those systems with pertinent positive or pertinent negative responses have been documented in the HPI. Past Medical History Past Medical History: Asthma, GERD/Reflux, Hypertension, Osteoarthritis (OA) Additional Past Medical History / Comment(s): hiatal hernia,possible asthma History of Any Multi-Drug Resistant Organisms: None Reported Past Surgical History: Orthopedic Surgery Additional Past Surgical History / Comment(s): sinus surg,left knee procedure Past Anesthesia/Blood Transfusion Reactions: No Reported Reaction Additional Past Anesthesia/Blood Transfusion Reaction / Comment(s): spouse states "difficult intubation with sinus surgery" Past Psychological History: No Psychological Hx Reported Smoking Status: Never smoker Past Alcohol Use History: Occasional Past Drug Use History: None Reported - Past Family History Mother Family Medical History: No Reported History <Juan Clevelandina Kat - Last Filed: 09/15/18 04:19> General Exam Limitations: no limitations General appearance: alert, in no apparent distress, other (Physical well- developed, well-nourished adult male patient in no acute distress. Vital signs upon presentation are temperature 99.5F, pulse 84, respirations 18, blood pressure 140/85, pulse ox 96% on room air.) Eye exam: Present: normal appearance, PERRL, EOMI. Absent: scleral icterus, conjunctival injection, periorbital swelling ENT exam: Present: normal exam, normal oropharynx, mucous membranes moist Respiratory exam: Present: normal lung sounds bilaterally. Absent: respiratory distress, wheezes, rales, rhonchi, stridor Cardiovascular Exam: Present: regular rate, normal rhythm, normal heart sounds. Absent: systolic murmur, diastolic murmur, rubs, gallop, clicks GI/Abdominal exam: Present: soft, normal bowel sounds. Absent: distended, tenderness, guarding, rebound, rigid Extremities exam: Present: full ROM, tenderness (There is tenderness over the right anterior knee.), normal capillary refill, other (Patient has erythema extending from just above the right knee down to the mid anterior lower leg. There is swelling surrounding the knee. Patient does exhibit full extension, reports increased pain with full flexion. Skin is otherwise pink, warm, dry. Cap refills less than 3 seconds. Pedal and posttibial pulses are 2+ and equal bilaterally.). Absent: normal inspection, pedal edema, joint swelling, calf tenderness Neurological exam: Present: alert, oriented X3, CN II-XII intact Psychiatric exam: Present: normal affect, normal mood Skin exam: Present: warm, dry, intact, normal color. Absent: rash <Coby Cleveland - Last Filed: 09/15/18 04:19> Vital Signs 09/14/18 09/14/18 09/14/18 20:17 21:29 23:12 Temperature 99.5 F 99.6 F Pulse Rate 84 86 81 Respiratory 18 14 14 Rate Blood Pressure 140/85 117/86 136/89 O2 Sat by Pulse 96 95 96 Oximetry 09/15/18 00:43 Temperature 98.7 F Pulse Rate 76 Respiratory 18 Rate Blood Pressure 117/81 O2 Sat by Pulse 99 Oximetry Medical Decision Making - Lab Data Result diagrams: 09/14/18 20:41 09/14/18 20:41 - Radiology Data Radiology results: report reviewed, image reviewed <Coby Cleveland - Last Filed: 09/15/18 04:19> - Lab Data Result diagrams: 09/14/18 20:41 09/14/18 20:41 <Diomedes Durán - Last Filed: 09/15/18 09:08> - Medical Decision Making 48-year-old male patient percents the emergency department today for evaluation of pain and swelling to the right knee. Physical examination does reveal cellulitis extending from just above the knee down to mid anterior lower leg. Patient does have prepatellar tenderness. X-ray was obtained and did show evidence of swelling over the patella and pretibial tubercle. Labs reviewed and were unremarkable. Patient symptoms are consistent with bursitis however there is concern for septic arthritis. Given overlying cellulitis to her unable to aspirate the joint. There did not appear to be evidence of effusion on x-ray either. Patient will be admitted for IV antibiotics and evaluation by orthopedics. (Coby Cleveland) I saw this patient in conjunction with the physician intellectual property legal assistant. I performed independent history and physical exam. Agree with case management. (Diomedes Durán) - Lab Data Lab Results 01/29/19 01/29/19 01/29/19 Range/Units 20:41 20:41 20:41 WBC 9.8 (3.8-10.6) k/uL RBC 4.68 (4.30-5.90) m/uL Hgb 14.0 (13.0-17.5) gm/dL Hct 41.3 (39.0-53.0) % MCV 88.2 (80.0-100.0) fL MCH 29.9 (25.0-35.0) pg MCHC 33.9 (31.0-37.0) g/dL RDW 13.1 (11.5-15.5) % Plt Count 174 (150-450) k/uL Neutrophils % 76 % Lymphocytes % 14 % Monocytes % 5 % Eosinophils % 2 % Basophils % 1 % Neutrophils # 7.5 (1.3-7.7) k/uL Lymphocytes # 1.4 (1.0-4.8) k/uL Monocytes # 0.5 (0-1.0) k/uL Eosinophils # 0.2 (0-0.7) k/uL Basophils # 0.1 (0-0.2) k/uL PT (9.0-12.0) sec INR (<1.2) APTT (22.0-30.0) sec Sodium 137 (137-145) mmol/L Potassium 4.3 (3.5-5.1) mmol/L Chloride 103 (98-107) mmol/L Carbon Dioxide 24 (22-30) mmol/L Anion Gap 10 mmol/L BUN 20 (9-20) mg/dL Creatinine 0.94 (0.66-1.25) mg/dL Est GFR (CKD-EPI)AfAm >90 (>60 ml/min/1.73 sqM) Est GFR (CKD-EPI)NonAf >90 (>60 ml/min/1.73 sqM) Glucose 262 H (74-99) mg/dL Plasma Lactic Acid Antonio 2.0 (0.7-2.0) mmol/L Calcium 9.1 (8.4-10.2) mg/dL Total Bilirubin 1.0 (0.2-1.3) mg/dL AST 28 (17-59) U/L ALT 45 (21-72) U/L Alkaline Phosphatase 89 (38-126) U/L Total Protein 7.2 (6.3-8.2) g/dL Albumin 4.0 (3.5-5.0) g/dL 09/14/18 Range/Units 20:41 WBC (3.8-10.6) k/uL RBC (4.30-5.90) m/uL Hgb (13.0-17.5) gm/dL Hct (39.0-53.0) % MCV (80.0-100.0) fL MCH (25.0-35.0) pg MCHC (31.0-37.0) g/dL RDW (11.5-15.5) % Plt Count (150-450) k/uL Neutrophils % % Lymphocytes % % Monocytes % % Eosinophils % % Basophils % % Neutrophils # (1.3-7.7) k/uL Lymphocytes # (1.0-4.8) k/uL Monocytes # (0-1.0) k/uL Eosinophils # (0-0.7) k/uL Basophils # (0-0.2) k/uL PT 10.4 (9.0-12.0) sec INR 1.0 (<1.2) APTT 26.3 (22.0-30.0) sec Sodium (137-145) mmol/L Potassium (3.5-5.1) mmol/L Chloride (98-107) mmol/L Carbon Dioxide (22-30) mmol/L Anion Gap mmol/L BUN (9-20) mg/dL Creatinine (0.66-1.25) mg/dL Est GFR (CKD-EPI)AfAm (>60 ml/min/1.73 sqM) Est GFR (CKD-EPI)NonAf (>60 ml/min/1.73 sqM) Glucose (74-99) mg/dL Plasma Lactic Acid Antonio (0.7-2.0) mmol/L Calcium (8.4-10.2) mg/dL Total Bilirubin (0.2-1.3) mg/dL AST (17-59) U/L ALT (21-72) U/L Alkaline Phosphatase (38-126) U/L Total Protein (6.3-8.2) g/dL Albumin (3.5-5.0) g/dL - Radiology Data 3 views of the right knee are obtained. Report was reviewed in its entirety. Impression by Dr. Rodriguez shows mild chondrocalcinosis. No fracture. No sign of osteomyelitis. Mild soft tissue swelling noted anterior to the patella and tibial tubercle. (Coby Cleveland) Disposition Decision to Admit Reason: Admit from EC Decision Date: 09/15/18 Decision Time: 00:07 <Coby Cleveland - Last Filed: 09/15/18 04:19> <Diomedes Durán - Last Filed: 09/15/18 09:08> Clinical Impression: Prepatellar bursitis, right knee, Cellulitis of right knee Disposition: ADMITTED IP TO THIS [facility] Condition: Serious
[2018-09-14] MEDS: SODIUM CHLORIDE 0.9% 500 ML 500 ML IV SCH (21:22)
[2018-09-14 21:26] LABS: Basophils # (A) 0.1 k/uL (0-0.2); Basophils % (A) 1 %; Eosinophils # (A) 0.2 k/uL (0-0.7); Eosinophils % (A) 2 %; HCT 41.3 % (39.0-53.0); Lymphocytes # (A) 1.4 k/uL (1.0-4.8); Lymphocytes % (A) 14 %; MCH 29.9 pg (25.0-35.0); MCHC 33.9 g/dL (31.0-37.0); MCV 88.2 fL (80.0-100.0); Mean Platelet Volume 7.5; Monocytes # (A) 0.5 k/uL (0-1.0); Monocytes % (A) 5 %; Neutrophils # (A) 7.5 k/uL (1.3-7.7); Neutrophils % (A) 76 %; Platelet Count 174 k/uL (150-450); RBC 4.68 m/uL (4.30-5.90); RDW 13.1 % (11.5-15.5); WBC 9.8 k/uL (3.8-10.6)
[2018-09-14 21:29] LABS: ALT 45 U/L (21-72); AST 28 U/L (17-59); Alkaline Phosphatase 89 U/L (38-126); Anion Gap 10 mmol/L; Blood Urea Nitrogen 20 mg/dL (9-20); Calcium 9.1 mg/dL (8.4-10.2); Carbon Dioxide 24 mmol/L (22-30); Chloride 103 mmol/L (98-107); Glucose 262 mg/dL (74-99); Potassium 4.3 mmol/L (3.5-5.1); Sodium 137 mmol/L (137-145); Total Protein 7.2 g/dL (6.3-8.2)
[2018-09-14 21:32] LABS: Partial Thromboplastin Time 26.3 sec (22.0-30.0); Prothrombin Time 10.4 sec (9.0-12.0)
--- NOTE | 2018-09-14 21:41 | XR ---
EXAMINATION TYPE: XR knee complete RT DATE OF EXAM: 09/14/2018 COMPARISON: NONE HISTORY: Knee infection TECHNIQUE: 3 views FINDINGS: I see no fracture nor dislocation. There is no sign of joint effusion. There is calcificati on of the menisci. There is minor spurring of the medial femoral and tibial condyles. IMPRESSION: Mild chondrocalcinosis. No fracture. No sign of osteomyelitis. Mild soft tissue swelling noted anterior to the patella and tibial tubercle.
[2018-09-15] MEDS ORDERED: MORPHINE SULFATE 4 MG/ML SYRINGE IV PRN (00:04)
[2018-09-15] MEDS ORDERED: NALOXONE 0.4 MG/ML 1 ML VIAL IV PRN (00:04)
[2018-09-15] MEDS ORDERED: ONDANSETRON 4 MG/2 ML VIAL IVP PRN (00:04)
[2018-09-15] MEDS ORDERED: VANCOMYCIN IV PER PHARMACY 1 EACH MISC MISCELLANE PRN (00:06)
[2018-09-15] MEDS ORDERED: VANCOMYCIN 2,000 MG in SODIUM CHLORIDE 0.9% 500 ML 500 ML IVPB ONE (00:30)
[2018-09-15] MEDS: SODIUM CHLORIDE 0.9% 1,000 ML IV SCH ×3 (00:41→20:09)
[2018-09-15 01:26] LABS: Glucose,Whole Blood 175 mg/dL (75-99)
[2018-09-15] MEDS: VANCOMYCIN 1,500 MG in SODIUM CHLORIDE 0.9% 250 ML IVPB SCH ×2 (10:09→19:59)
--- NOTE | 2018-09-15 14:36 | P.CNOR ---
History of Present Illness - [facility] Consult date: 09/15/18 Requesting physician: Vic Wright Consult reason: joint pain History of present illness: Patient is a 48-year-old male patient seen at bedside this morning in consultation for right knee pain, bursitis and cellulitis. He was admitted through the emergency department early this morning. Patient states that pain and swelling started early this morning and has been worsening since. He states he saw his primary care physician and was told to come to the emergency department if symptoms worsen. 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 Patient states he has had an infected bursitis of the left knee in the past and this feels similar but not as bad. He is currently denying fever and chills. He also denies numbness, tingling, calf pain, dyspnea , chest pain or other. Review of Systems Constitutional: Denies chills, Denies fever Past Medical History Past Medical History: Asthma, GERD/Reflux, Hypertension, Osteoarthritis (OA) Additional Past Medical History / Comment(s): hiatal hernia,possible asthma History of Any Multi-Drug Resistant Organisms: None Reported Past Surgical History: Orthopedic Surgery Additional Past Surgical History / Comment(s): sinus surg,left knee procedure Past Anesthesia/Blood Transfusion Reactions: No Reported Reaction Additional Past Anesthesia/Blood Transfusion Reaction / Comm: spouse states "difficult intubation with sinus surgery" Past Psychological History: No Psychological Hx Reported Smoking Status: Never smoker Past Alcohol Use History: Occasional Past Drug Use History: None Reported - Past Family History Mother Family Medical History: No Reported History Medications and Allergies Home Medications Medication Instructions Recorded Confirmed Type Meloxicam [Mobic] 15 mg PO HS 05/21/17 09/14/18 History Irbesartan [Avapro] 300 mg PO HS 05/04/18 09/14/18 History Pantoprazole Sodium 40 mg PO DAILY 05/04/18 09/14/18 History Ranitidine HCl [Zantac] 150 mg PO HS 05/04/18 09/14/18 History Cefuroxime Axetil [Ceftin] 500 mg PO Q12H 09/14/18 09/14/18 History amLODIPine [Norvasc] 5 mg PO HS 09/14/18 09/14/18 History Allergies Allergy/AdvReac Type Severity Reaction Status Date / Time MINI Inhibitors AdvReac Cough Verified 09/14/18 20:52 Physical Examination Inspection of right lower extremity shows mild erythema at the anterior lower leg. It appears to be receded from previous demarcation. There is mild edema at the prepatellar area and anterior tibia. There is no joint effusion. He can flex to 90 degrees with some pain. There is full extension. The joint is ligamentously stable. The joint is not hot. There is mild tenderness at the prepatellar bursa. No evidence of abcess. Calf is SNT. Neurovascular status is fully intact distally. Results - Labs Labs: Abnormal Lab Results - Last 24 Hours (Table) 09/14/18 09/15/18 Range/Units 20:41 01:24 Glucose 262 H (74-99) mg/dL POC Glucose (mg/dL) 175 H (75-99) mg/dL H & H 09/14/18 Range/Units 20:41 Hgb 14.0 (13.0-17.5) gm/dL Hct 41.3 (39.0-53.0) % Coagulation 09/14/18 Range/Units 20:41 INR 1.0 (<1.2) Result Diagrams: 09/14/18 20:41 09/14/18 20:41 - Diagnostic results Knee x-ray: report reviewed, image reviewed Assessment and Plan (1) Cellulitis of right knee Current Visit: Yes Status: Acute Priority: Medium Code(s): L03.115 - CELLULITIS OF RIGHT LOWER LIMB SNOMED Code(s): 12722608 (2) Prepatellar bursitis, right knee Narrative/Plan: It does not appear surgical intervention is warranted at this time. Recommend continued IV antibiotics, compression wrap or SARA hose and elevation. Will continue to monitor and make further recommendations as appropriate. Current Visit: Yes Status: Acute Priority: Medium Code(s): M70.41 - PREPATELLAR BURSITIS, RIGHT KNEE SNOMED Code(s): 06199117 Time with Patient: Less than 30
--- NOTE | 2018-09-15 14:59 | P.HPIM ---
History of Present Illness 48-year-old male came in with the right knee pain found to have bursitis and redness around the right knee. Patient had a patellar bursitis in the left knee as well at that time it was drained. Patient was evaluated by arthritic surgery do not believe there is any drainable abscess in that area in the recommending to continue vancomycin monitor monitor the patient redness did improve which he can say from the markings. Patient denied any fever chills denied any nausea vomiting. Patient will be monitored on the vancomycin if there is improvement patient was discharged on oral Bactrim tomorrow. Review of Systems REVIEW OF SYSTEMS: CONSTITUTIONAL: No fever, no malaise, no fatigue. HEENT: No recent visual problems or hearing problems. Denied any sore throat. CARDIOVASCULAR: No chest pain, orthopnea, PND, no palpitations, no syncope. PULMONARY: No shortness of breath, no cough, no hemoptysis. GASTROINTESTINAL: No diarrhea, no nausea, no vomiting, no abdominal pain. NEUROLOGICAL: No headaches, no weakness, no numbness. HEMATOLOGICAL: Denies any bleeding or petechiae. GENITOURINARY: Denies any burning micturition, frequency, or urgency. MUSCULOSKELETAL/RHEUMATOLOGICAL: As mentioned in HPI ENDOCRINE: Denies any polyuria or polydipsia. The rest of the 14-point review of systems is negative. Past Medical History Past Medical History: Asthma, GERD/Reflux, Hypertension, Osteoarthritis (OA) Additional Past Medical History / Comment(s): hiatal hernia,possible asthma History of Any Multi-Drug Resistant Organisms: None Reported Past Surgical History: Orthopedic Surgery Additional Past Surgical History / Comment(s): sinus surg,left knee procedure Past Anesthesia/Blood Transfusion Reactions: No Reported Reaction Additional Past Anesthesia/Blood Transfusion Reaction / Comment(s): spouse states "difficult intubation with sinus surgery" Past Psychological History: No Psychological Hx Reported Smoking Status: Never smoker Past Alcohol Use History: Occasional Past Drug Use History: None Reported - Past Family History Mother Family Medical History: No Reported History Medications and Allergies Home Medications Medication Instructions Recorded Confirmed Type Meloxicam [Mobic] 15 mg PO HS 05/21/17 09/14/18 History Irbesartan [Avapro] 300 mg PO HS 05/04/18 09/14/18 History Pantoprazole Sodium 40 mg PO DAILY 05/04/18 09/14/18 History Ranitidine HCl [Zantac] 150 mg PO HS 05/04/18 09/14/18 History Cefuroxime Axetil [Ceftin] 500 mg PO Q12H 09/14/18 09/14/18 History amLODIPine [Norvasc] 5 mg PO HS 09/14/18 09/14/18 History Allergies Allergy/AdvReac Type Severity Reaction Status Date / Time MINI Inhibitors AdvReac Cough Verified 09/14/18 20:52 Physical Exam Vitals: Vital Signs Temp Pulse Pulse Resp BP BP Pulse Ox 09/15/18 07:24 99 F 64 18 129/76 96 09/15/18 03:48 73 16 09/15/18 01:20 73 16 09/15/18 00:58 98.9 F 73 16 142/90 94 L 09/15/18 00:43 98.7 F 76 18 117/81 99 09/14/18 23:12 99.6 F 81 14 136/89 96 09/14/18 21:29 86 14 117/86 95 09/14/18 20:17 99.5 F 84 18 140/85 96 Intake and Output 09/14/18 09/15/18 09/15/18 22:59 06:59 14:59 Intake Total 702 Balance 702 Intake: Oral 702 Other: Voiding Method Toilet Toilet # Voids 1 Weight 96.615 kg PHYSICAL EXAMINATION: GENERAL: The patient is alert and oriented x3, not in any acute distress. Well developed, well nourished. HEENT: Pupils are round and equally reacting to light. EOMI. No scleral icterus. No conjunctival pallor. Normocephalic, atraumatic. No pharyngeal erythema. No thyromegaly. CARDIOVASCULAR: S1 and S2 present. No murmurs, rubs, or gallops. PULMONARY: Chest is clear to auscultation, no wheezing or crackles. ABDOMEN: Soft, nontender, nondistended, normoactive bowel sounds. No palpable organomegaly. MUSCULOSKELETAL: She and does have swelling and fluctuant mass in the right infrapatellar area, patient does have redness around the right knee EXTREMITIES: No cyanosis, clubbing, or pedal edema. NEUROLOGICAL: Gross neurological examination did not reveal any focal deficits. SKIN: No rashes. Results CBC & Chem 7: 09/14/18 20:41 09/14/18 20:41 Labs: Abnormal Lab Results - Last 24 Hours (Table) 09/14/18 09/15/18 Range/Units 20:41 01:24 Glucose 262 H (74-99) mg/dL POC Glucose (mg/dL) 175 H (75-99) mg/dL Thrombosis Risk Factor Assmnt - Choose All That Apply Any of the Below Risk Factors Present?: Yes Each Factor Represents 1 point: Age 41-60 years, Obesity (BMI >25), Swollen legs (current) Other Risk Factors: No Thrombosis Risk Factor Assessment Total Risk Factor Score: 3 Thrombosis Risk Factor Assessment Level: Moderate Risk Assessment and Plan Plan: Right infrapatellar bursitis, possibly infected: Orthopedic surgery is not requiring any drainage at this time, patient does not appear to have any drainable abscess and the patient will be can you done vancomycin monitor today possibly of discharge tomorrow Antibiotic -Asthma with a history of nicotine abuse counseling was provided regarding nicotine abuse patient does not have any asthma acceleration at this time patient may have had mild intermittent asthma -Hypertension -Osteoarthritis -Gastroesophageal reflux. For above-mentioned chronic medical problems patient will be resumed on appropriate home medications
[2018-09-15] MEDS ORDERED: PANTOPRAZOLE 40 MG TABLET PO STA (16:30)
[2018-09-15 17:21] LABS: Hemoglobin A1C 7.3 % (4.0-6.0)
[2018-09-15] MEDS ORDERED: ACETAMINOPHEN TAB 325 MG TAB PO PRN (19:01)
[2018-09-15] MEDS: LOSARTAN 50 MG TAB PO SCH (19:56)
[2018-09-15] MEDS: MELOXICAM 7.5 MG TAB PO SCH (19:56)
[2018-09-16 06:05] LABS: Basophils # (A) 0.1 k/uL (0-0.2); Basophils % (A) 1 %; Eosinophils # (A) 0.2 k/uL (0-0.7); Eosinophils % (A) 3 %; HCT 42.8 % (39.0-53.0); HGB 14.3 gm/dL (13.0-17.5); Lymphocytes # (A) 1.6 k/uL (1.0-4.8); Lymphocytes % (A) 23 %; MCH 29.9 pg (25.0-35.0); MCHC 33.5 g/dL (31.0-37.0); MCV 89.5 fL (80.0-100.0); Mean Platelet Volume 7.2; Monocytes # (A) 0.5 k/uL (0-1.0); Monocytes % (A) 8 %; Neutrophils # (A) 4.3 k/uL (1.3-7.7); Neutrophils % (A) 62 %; Platelet Count 169 k/uL (150-450); RBC 4.79 m/uL (4.30-5.90); RDW 13.1 % (11.5-15.5)
[2018-09-16 06:16] LABS: Anion Gap 6 mmol/L; Blood Urea Nitrogen 14 mg/dL (9-20); Carbon Dioxide 29 mmol/L (22-30); Chloride 104 mmol/L (98-107); Glucose 158 mg/dL (74-99); Potassium 4.5 mmol/L (3.5-5.1); Sodium 139 mmol/L (137-145)
[2018-09-16] MEDS ORDERED: PANTOPRAZOLE 40 MG TABLET PO SCH (07:30)
--- NOTE | 2018-09-16 10:06 | P.PN ---
Subjective Progress Note Date: 09/16/18 Principal diagnosis: Right knee prepatellar bursitis/lower extremity cellulitis mild Patient is a pleasant 48-year-old male seen at bedside this morning. We have been following him for right knee prepatellar bursitis as well as lower extremity cellulitis. He has been on IV antibiotics including vancomycin, using SARA hose and elevation. He does not feel worse today. He is currently denying fever or chills, calf pain, numbness, tingling, nausea, vomiting, sweats or other. Objective - Vital Signs Vital signs: Vital Signs Temp 98.5 F 09/16/18 09:22 Pulse 75 09/16/18 07:10 Resp 15 09/16/18 03:39 BP 131/81 09/16/18 07:10 Pulse Ox 94 L 09/16/18 07:10 Intake & Output 09/15/18 09/16/18 09/16/18 18:59 06:59 18:59 Intake Total 1322 250 Balance 1322 250 Intake: Intake, IV Titration 250 Amount Vancomycin 1,500 mg In 250 Sodium Chloride 0.9% 250 ml @ 125 mls/hr IVPB Q12H [facility] Rx#:[id number] Oral 1122 Other 200 Other: Voiding Method Toilet Toilet Toilet # Voids 1 - Exam Inspection of the right lower extremity shows mild erythema across the anterior lower leg that is the same or improved from yesterday. There is mild edema peripherally. There is mild tenderness at the tibial tubercle and prepatellar bursa. There is no significant fluid collection or evidence of abscess or purulence. The joint is not hot to touch. He is able to flex 90 plus as well as fully extend. The calf is soft and nontender. Motor and sensation is fully intact throughout the right lower extremity. 2+ dorsalis pedis pulses present as well as less than 2 second capillary refill. - Constitutional General appearance: Present: no acute distress - Labs CBC & Chem 7: 09/16/18 05:39 09/16/18 05:39 Labs: Abnormal Lab Results - Last 24 Hours (Table) 09/14/18 09/16/18 Range/Units 20:41 05:39 Glucose 158 H (74-99) mg/dL Hemoglobin A1c 7.3 H (4.0-6.0) % Microbiology - Last 24 Hours (Table) 09/14/18 20:41 Blood Culture - Preliminary Blood No Growth after 24 hours Assessment and Plan (1) Cellulitis of right knee Narrative/Plan: There continues to be no immediate plans for surgical intervention is urged no evidence of focal abscess or fluid collection. He appears to be stable and/or improving. He has normal white count and is afebrile currently. Recommend continued IV antibiotics, SARA hose and elevation. He can be discharged from an orthopedic standpoint tomorrow should he not show signs of worsening. Current Visit: Yes Status: Acute Priority: Medium Code(s): L03.115 - CELLULITIS OF RIGHT LOWER LIMB SNOMED Code(s): 34258404 (2) Prepatellar bursitis, right knee Current Visit: Yes Status: Acute Priority: Medium Code(s): M70.41 - PREPATELLAR BURSITIS, RIGHT KNEE SNOMED Code(s): 17385059 Time with Patient: Less than 30
[2018-09-16] MEDS: VANCOMYCIN 1,500 MG in SODIUM CHLORIDE 0.9% 250 ML IVPB SCH ×2 (10:24→21:37)
[2018-09-16 11:12] LABS: Glucose,Whole Blood 164 mg/dL (75-99)
--- NOTE | 2018-09-16 14:08 | P.PN ---
Subjective Patient is admitted for prepatellar bursitis in the right side. Patient believes the swelling is worse although autonomic surgery evaluated and they believe swelling is fairly stable and there is still no drainable abscess because of which the recommending one more day of antibiotics and monitoring. A she is hemoglobin A1c 7.2 newly diagnosed diabetic and we counseled was provided and patient was started on metformin Constitutional: Denied any fatigue denied any fever. Cardio vascular: denied any chest pain, palpitations Gastrointestinal denied any nausea vomiting Pulmonary: Denied any shortness of breath cough Neurologic denied any new focal deficits All inpatient medications were reviewed and appropriate changes in these medications as dictated in the interval history and assessment and plan. Objective - Vital Signs Vital signs: Vital Signs Temp 99.3 F 09/16/18 11:57 Pulse 70 09/16/18 11:57 Resp 18 09/16/18 11:57 BP 130/79 09/16/18 11:57 Pulse Ox 94 L 09/16/18 11:57 Intake & Output 09/15/18 09/16/18 09/16/18 18:59 06:59 18:59 Intake Total 1322 250 Balance 1322 250 Intake: Intake, IV Titration 250 Amount Vancomycin 1,500 mg In 250 Sodium Chloride 0.9% 250 ml @ 125 mls/hr IVPB Q12H [facility] Rx#:[id number] Oral 1122 Other 200 Other: Voiding Method Toilet Toilet Toilet # Voids 1 - Exam PHYSICAL EXAMINATION: GENERAL: The patient is alert and oriented x3, not in any acute distress. Well developed, well nourished. HEENT: Pupils are round and equally reacting to light. EOMI. No scleral icterus. No conjunctival pallor. Normocephalic, atraumatic. No pharyngeal erythema. No thyromegaly. CARDIOVASCULAR: S1 and S2 present. No murmurs, rubs, or gallops. PULMONARY: Chest is clear to auscultation, no wheezing or crackles. ABDOMEN: Soft, nontender, nondistended, normoactive bowel sounds. No palpable organomegaly. MUSCULOSKELETAL: She and does have swelling and fluctuant mass in the right infrapatellar area, patient does have redness around the right knee EXTREMITIES: No cyanosis, clubbing, or pedal edema. NEUROLOGICAL: Gross neurological examination did not reveal any focal deficits. SKIN: No rashes. - Labs CBC & Chem 7: 09/16/18 05:39 09/16/18 05:39 Labs: Abnormal Lab Results - Last 24 Hours (Table) 09/14/18 09/16/18 09/16/18 Range/Units 20:41 05:39 11:10 Glucose 158 H (74-99) mg/dL POC Glucose (mg/dL) 164 H (75-99) mg/dL Hemoglobin A1c 7.3 H (4.0-6.0) % Microbiology - Last 24 Hours (Table) 09/14/18 20:41 Blood Culture - Preliminary Blood No Growth after 24 hours Assessment and Plan Plan: Right infrapatellar bursitis, possibly infected: Orthopedic surgery is not requiring any drainage at this time, patient does not appear to have any drainable abscess and the patient will be can you done vancomycin monitor today possibly of discharge tomorrow On oral antibiotic carotid to monitor 1 more day with IV antibiotic here New onset diabetes mellitus: Management as mentioned above will start him on oral metformin find it twice a day. -Asthma with a history of nicotine abuse counseling was provided regarding nicotine abuse patient does not have any asthma acceleration at this time patient may have had mild intermittent asthma -Hypertension -Osteoarthritis -Gastroesophageal reflux. For above-mentioned chronic medical problems patient will be resumed on appropriate home medications
[2018-09-16 17:11] LABS: Glucose,Whole Blood 135 mg/dL (75-99)
[2018-09-16] MEDS: metFORMIN 500 MG TAB PO SCH (17:18)
[2018-09-16 20:41] LABS: Glucose,Whole Blood 155 mg/dL (75-99)
[2018-09-16] MEDS: MELOXICAM 7.5 MG TAB PO SCH (21:27)
[2018-09-16] MEDS: LOSARTAN 50 MG TAB PO SCH (21:28)
[2018-09-16] MEDS: INSULIN ASPART 100 UNIT/ML 1 ML 10 ML VIAL SQ SCH (21:29)
[2018-09-16] MEDS: PANTOPRAZOLE 40 MG TABLET PO SCH (22:59)
[2018-09-17 06:46] LABS: Glucose,Whole Blood 146 mg/dL (75-99)
[2018-09-17 07:01] LABS: Anion Gap 6 mmol/L; Blood Urea Nitrogen 17 mg/dL (9-20); Calcium 8.9 mg/dL (8.4-10.2); Carbon Dioxide 28 mmol/L (22-30); Chloride 104 mmol/L (98-107); Glucose 143 mg/dL (74-99); Potassium 4.3 mmol/L (3.5-5.1); Sodium 138 mmol/L (137-145)
[2018-09-17] MEDS ORDERED: VANCOMYCIN TROUGH DUE 1 EACH MISC MISCELLANE ONE (08:00)
[2018-09-17 08:28] VITALS: BP 131/80; PULSE 75; RESP 18; TEMP 98.5
[2018-09-17] MEDS: metFORMIN 500 MG TAB PO SCH (08:39)
[2018-09-17] MEDS: PANTOPRAZOLE 40 MG TABLET PO SCH (08:39)
[2018-09-17] MEDS: INSULIN ASPART 100 UNIT/ML 1 ML 10 ML VIAL SQ SCH ×2 (08:39→12:28)
[2018-09-17] MEDS: VANCOMYCIN 1,500 MG in SODIUM CHLORIDE 0.9% 250 ML IVPB SCH (08:39)
[2018-09-17 11:47] LABS: Glucose,Whole Blood 177 mg/dL (75-99)
--- NOTE | 2018-09-17 13:54 | P.DS ---
Providers Date of admission: 09/15/18 00:07 Attending physician: Amol Desai Consults: 09/15/18 00:05 Consult Physician Routine Consulting Provider: Vic Wright Consult Reason/Comments: Right knee bursitis; Cellulitis Do you want consulting provider notified?: Yes Primary care physician: Darren [facility] Course: Patient is admitted for prepatellar bursitis in the right side. Patient believes the swelling is worse although orthopedic surgery evaluated and they believe swelling is fairly stable and there is still no drainable abscess because of which the recommending one more day of antibiotics and monitoring. A she is hemoglobin A1c 7.2 newly diagnosed diabetic and we counseled was provided and patient was started on metformin 09/17/2018 Patients swelling improved a little bit pain improved significantly, arthritic surgery cleared for discharge. Patient will be discharged today on Bactrim double strength 2 tablets twice a day and we'll check the basic metabolic profile in about a week. Patient will be started on metformin for diabetes mellitus type 2 new diagnosis. Patient has Ceftin at home and asked him to continue the antibiotic for a week Ceftin had hours strep to cocci and Bactrim is good for MRSA although there is no evidence of MRSA. PHYSICAL EXAMINATION: GENERAL: The patient is alert and oriented x3, not in any acute distress. Well developed, well nourished. HEENT: Pupils are round and equally reacting to light. EOMI. No scleral icterus. No conjunctival pallor. Normocephalic, atraumatic. No pharyngeal erythema. No thyromegaly. CARDIOVASCULAR: S1 and S2 present. No murmurs, rubs, or gallops. PULMONARY: Chest is clear to auscultation, no wheezing or crackles. ABDOMEN: Soft, nontender, nondistended, normoactive bowel sounds. No palpable organomegaly. MUSCULOSKELETAL: She and does have swelling and fluctuant mass in the right infrapatellar area, patient does have redness around the right knee EXTREMITIES: No cyanosis, clubbing, or pedal edema. NEUROLOGICAL: Gross neurological examination did not reveal any focal deficits. SKIN: No rashes. Assessment and Plan Plan: Right pre/ infrapatellar bursitis, possibly infected: Management as mentioned above New onset diabetes mellitus: Management as mentioned above will start him on oral metformin find it twice a day. Counseling was provided patient to check his blood sugars every day in the morning. -Asthma with a history of nicotine abuse counseling was provided regarding nicotine abuse patient does not have any asthma exacerbation at this time patient may have mild intermittent asthma -Hypertension -Osteoarthritis -Gastroesophageal reflux. Patient Condition at Discharge: Serious Plan - Discharge Summary Discharge Rx Participant: Yes New Discharge Prescriptions: New metFORMIN HCL [Glucophage] 500 mg PO BID-W/MEALS #30 tab Sulfamethox-Tmp 800-160Mg [Bactrim DS 800-160 mg] 2 tab PO Q12HR #28 tab Continue Meloxicam [Mobic] 15 mg PO HS Ranitidine HCl [Zantac] 150 mg PO HS Irbesartan [Avapro] 300 mg PO HS Pantoprazole Sodium 40 mg PO DAILY Cefuroxime Axetil [Ceftin] 500 mg PO Q12H Discontinued amLODIPine [Norvasc] 5 mg PO HS Discharge Medication List Meloxicam [Mobic] 15 mg PO HS 05/21/17 [History] Irbesartan [Avapro] 300 mg PO HS 05/04/18 [History] Pantoprazole Sodium 40 mg PO DAILY 05/04/18 [History] Ranitidine HCl [Zantac] 150 mg PO HS 05/04/18 [History] Cefuroxime Axetil [Ceftin] 500 mg PO Q12H 09/14/18 [History] Sulfamethox-Tmp 800-160Mg [Bactrim DS 800-160 mg] 2 tab PO Q12HR #28 tab [Rx] metFORMIN HCL [Glucophage] 500 mg PO BID-W/MEALS #30 tab 09/17/18 [Rx] Follow up Appointment(s)/Referral(s): Darren Rodriguez DO [Primary Care Provider] - 3 Days Vic Wright MD [STAFF PHYSICIAN] - 1 Week Ambulatory/Diagnostic Orders: Basic Metabolic Panel [LAB.AMB] Time Frame: 3 Days, Location: None Selected Discharge Disposition: HOME SELF-CARE
[2018-09-17] MEDS ORDERED: VANCOMYCIN 1,500 MG in SODIUM CHLORIDE 0.9% 250 ML IVPB SCH (16:00)
== END 2018-09-17 14:28 | disposition home or self-care (01) ==
LOC: EC 20:11 → 1SOBS 09-15 00:07
PROVIDERS: ADMIT Hospitalist; ATTEND Hospitalist
DX: M70.41 Prepatellar bursitis, right knee (principal); L03.115 Cellulitis of right lower limb; I10 Essential (primary) hypertension; M11.261 Other chondrocalcinosis, right knee; M19.90 Unspecified osteoarthritis, unspecified site; K21.9 Gastro-esophageal reflux disease without esophagitis; J45.909 Unspecified asthma, uncomplicated; K44.9 Diaphragmatic hernia without obstruction or gangrene; E11.9 Type 2 diabetes mellitus without complications; E66.9 Obesity, unspecified; Z68.31 Body mass index [BMI] 31.0-31.9, adult; Z79.1 Long term (current) use of non-steroidal anti-inflammatories (NSAID); Z79.899 Other long term (current) drug therapy; Z88.8 Allergy status to other drugs, medicaments and biological substances; Z87.891 Personal history of nicotine dependence; Z87.39 Personal history of other diseases of the musculoskeletal system and connective tissue
CPT/HCPCS: 96365; 96366 ×3; 96361; 99284; 36415; 80053; 80048 ×2; 83605; 85025 ×2; 80202; 85610; 85730; 87040; 83036; 73562; G0378 ×3; J3370 ×3

== ENCOUNTER 2019-07-13 07:47 | Day surgery (SDC) | payer BC ==
[2019-07-11 10:08] VITALS: BMI 29.5
[~2019-07-13 07:47] MED LIST changes: -LIDOCAINE 1% 20 ML VIAL (10MG/ML) FOR IV START INTRADERMA PRN
--- NOTE | 2019-07-13 07:57 | P.GSHP ---
History of Present Illness H&P Date: 07/13/19 CHIEF COMPLAINT: Colon screen HISTORY OF PRESENT ILLNESS: The patient is a 49-year-old male who presents for colon screen. Lower endoscopy was offered for further evaluation and management. PAST MEDICAL HISTORY: Please see list. PAST SURGICAL HISTORY: Please see list. MEDICATIONS: Please see list. ALLERGIES: Please see list. SOCIAL HISTORY: No illicit drug use FAMILY HISTORY: No reports of Crohn disease or ulcerative colitis. REVIEW OF ORGAN SYSTEMS: CONSTITUTIONAL: No reports of fevers or chills. PHYSICAL EXAM: VITAL SIGNS: Stable GENERAL: Well-developed pleasant in no acute distress. HEENT: No scleral icterus. Extraocular movements grossly intact. Moist buccal mucosa. NECK: Supple without lymphadenopathy. CHEST: Unlabored respirations. Equal bilateral excursions. CARDIOVASCULAR: Regular rate and rhythm. Distal 2+ pulses. ABDOMEN: Soft, nontender, nondistended. MUSCULOSKELETAL: No clubbing, cyanosis, or edema. ASSESSMENT: 1. Colon screen. PLAN: 1. Recommend proceeding with a lower endoscopy Past Medical History Past Medical History: Asthma, Diabetes Mellitus, GERD/Reflux, Hypertension, Osteoarthritis (OA) Additional Past Medical History / Comment(s): hx precancerous colon polyps, hiatal hernia,possible asthma History of Any Multi-Drug Resistant Organisms: None Reported Past Surgical History: Orthopedic Surgery Additional Past Surgical History / Comment(s): sinus surg,left knee procedure Past Anesthesia/Blood Transfusion Reactions: No Reported Reaction Additional Past Anesthesia/Blood Transfusion Reaction / Comment(s): spouse states "difficult intubation with sinus surgery",had knee surgery after sinus surgery without difficulty. Past Psychological History: No Psychological Hx Reported Smoking Status: Never smoker Past Alcohol Use History: Occasional Past Drug Use History: None Reported - Past Family History Mother Family Medical History: No Reported History Medications and Allergies Home Medications Medication Instructions Recorded Confirmed Type Meloxicam [Mobic] 15 mg PO HS 05/21/17 07/11/19 History Irbesartan [Avapro] 300 mg PO HS 05/04/18 07/11/19 History Pantoprazole Sodium 40 mg PO DAILY 05/04/18 07/11/19 History Ranitidine HCl [Zantac] 150 mg PO HS 05/04/18 07/11/19 History metFORMIN HCL [Glucophage] 500 mg PO BID-W/MEALS #30 tab 09/17/18 07/11/19 Rx Allergies Allergy/AdvReac Type Severity Reaction Status Date / Time MINI Inhibitors AdvReac Cough Verified 07/11/19 09:55
[2019-07-13] MEDS ORDERED: LIDOCAINE 1% 20 ML VIAL (10MG/ML) FOR IV START INTRADERMA ONE (08:10)
[2019-07-13 08:19] VITALS: RESP 16; TEMP 97.9
[2019-07-13] MEDS ORDERED: LIDOCAINE 1% INJ 10MG/ML (20 ML MDV) ONE (08:38)
[2019-07-13] MEDS ORDERED: PROPOFOL 10 MG/ML 20 ML VIAL IV ONE (08:38)
[2019-07-13 08:43] LABS: Glucose,Whole Blood 138 mg/dL (75-99)
--- NOTE | 2019-07-13 09:00 | P.PCN ---
Date of Procedure: 07/13/19 Description of Procedure: PREOPERATIVE DIAGNOSIS: Personal history of colon polyps. Colonoscopy screening POSTOPERATIVE DIAGNOSIS: Personal history of colon polyps. Colonoscopy screening Multiple tubular adenomas throughout the colon. Scattered diverticulosis OPERATION: Colonoscopy to the ileocecal valve and appendiceal orifice. Colonoscopy with multiple cold forceps biopsies. SURGEON: Janie Figueroa MD. ANESTHESIA: MAC. INDICATIONS: The patient is a 49-year-old male who presents for colonoscopy screening. Last colonoscopy was within 5 years. Benefits and risks were described and informed consent was obtained. DESCRIPTION OF PROCEDURE: The patient had undergone Gatorade, MiraLAX and Dulcolax prep. He had been brought into the operating room and laid in the left lateral decubitus position. After adequate intravenous sedation, the rectum was examined with 2% lidocaine jelly. No external hemorrhoids were encountered. The rectal tone was within normal limits. No lesions were palpated in the rectal vault. An Olympus colonoscope was advanced until the ileocecal valve and appendiceal orifice were clearly viewed. The prep was fair. Scattered diverticulosis was encountered. Multiple colonic polyps were found and cold forcep biopsy or snare polypectomy. No evidence of focal colitis was found. Retroflexion of the scope demonstrated no internal hemorrhoids. The colon was desufflated. The patient had tolerated the procedure well. Withdrawal time was over 6 minutes. FINDINGS: Aronchick preparation quality scale 2 (1-5) No internal hemorrhoids No external hemorrhoids No arteriovenous malformations. Scattered sigmoid diverticulosis Removal of 3 polyps: - Cold forceps biopsy at 30 cm from the anal verge, 4 mm polyp, sigmoid colon - Cold forceps biopsy at 40 cm from the anal verge, 5 mm polyp, sigmoid colon - Cold forceps biopsy at mid transverse colon, 4 mm polyp. No focal colitis. RECOMMENDATIONS: Repeat colonoscopy in 3 years, 2021 Plan - Discharge Summary Discharge Rx Participant: No New Discharge Prescriptions: No Action Meloxicam [Mobic] 15 mg PO HS Ranitidine HCl [Zantac] 150 mg PO HS Irbesartan [Avapro] 300 mg PO HS Pantoprazole Sodium 40 mg PO DAILY metFORMIN HCL [Glucophage] 500 mg PO BID-W/MEALS #30 tab Discharge Medication List Meloxicam [Mobic] 15 mg PO HS 05/21/17 [History] Irbesartan [Avapro] 300 mg PO HS 05/04/18 [History] Pantoprazole Sodium 40 mg PO DAILY 05/04/18 [History] Ranitidine HCl [Zantac] 150 mg PO HS 05/04/18 [History] metFORMIN HCL [Glucophage] 500 mg PO BID-W/MEALS #30 tab 09/17/18 [Rx] Follow up Appointment(s)/Referral(s): Janie Figueroa MD [STAFF PHYSICIAN] - 1 Week Patient Instructions/Handouts: Diverticulosis Diet (GEN), Diverticulosis (ED), Colorectal Polyps (DC) Activity/Diet/Wound Care/Special Instructions: Repeat colonoscopy in 3 years, 2021 Discharge Disposition: HOME SELF-CARE
[2019-07-13 09:12] VITALS: BP 129/78; PULSE 83
== END 2019-07-13 09:28 | disposition home or self-care (01) ==
LOC: ORWHC2ENDO 07:47
PROVIDERS: ATTEND Surgery Plastic and Reconstructive Surgery
DX: Z12.11 Encounter for screening for malignant neoplasm of colon (principal); D12.3 Benign neoplasm of transverse colon; K63.5 Polyp of colon; K57.30 Diverticulosis of large intestine without perforation or abscess without bleeding; I10 Essential (primary) hypertension; J45.909 Unspecified asthma, uncomplicated; E11.9 Type 2 diabetes mellitus without complications; K21.9 Gastro-esophageal reflux disease without esophagitis; M19.90 Unspecified osteoarthritis, unspecified site; K44.9 Diaphragmatic hernia without obstruction or gangrene; Z86.010 Personal history of colon polyps; Z85.038 Personal history of other malignant neoplasm of large intestine; Z98.890 Other specified postprocedural states; Z79.1 Long term (current) use of non-steroidal anti-inflammatories (NSAID); Z79.899 Other long term (current) drug therapy; Z79.84 Long term (current) use of oral hypoglycemic drugs; Z88.8 Allergy status to other drugs, medicaments and biological substances; Z87.19 Personal history of other diseases of the digestive system
CPT/HCPCS: 45380; J2001; J2704; 88305

== ENCOUNTER 2024-07-20 07:22 | Day surgery (SDC) | payer BC, OTHER ==
[2024-07-18 09:16] VITALS: BMI 26.6
--- NOTE | 2024-07-20 07:44 | P.GSHP ---
History of Present Illness H&P Date: 07/20/24 CHIEF COMPLAINT: Colon screen HISTORY OF PRESENT ILLNESS: The patient is a 54-year-old male who presents for colon screen. Lower endoscopy was offered for further evaluation and management. PAST MEDICAL HISTORY: Please see list. PAST SURGICAL HISTORY: Please see list. MEDICATIONS: Please see list. ALLERGIES: Please see list. SOCIAL HISTORY: No illicit drug use FAMILY HISTORY: No reports of Crohn disease or ulcerative colitis. REVIEW OF ORGAN SYSTEMS: CONSTITUTIONAL: No reports of fevers or chills. PHYSICAL EXAM: VITAL SIGNS: Stable GENERAL: Well-developed pleasant in no acute distress. HEENT: No scleral icterus. Extraocular movements grossly intact. Moist buccal mucosa. NECK: Supple without lymphadenopathy. CHEST: Unlabored respirations. Equal bilateral excursions. CARDIOVASCULAR: Regular rate and rhythm. Distal 2+ pulses. ABDOMEN: Soft, nontender, nondistended. MUSCULOSKELETAL: No clubbing, cyanosis, or edema. ASSESSMENT: 1. Colon screen. PLAN: 1. Recommend proceeding with a lower endoscopy Past Medical History Past Medical History: Asthma, Diabetes Mellitus, GERD/Reflux, Hypertension, Osteoarthritis (OA) Additional Past Medical History / Comment(s): Hx precancerous colon polyps, hiatal hernia, slightly high cholesterol. History of Any Multi-Drug Resistant Organisms: None Reported Past Surgical History: Orthopedic Surgery Additional Past Surgical History / Comment(s): Sinus surgery, left knee procedure, colonoscop/EGD X2. Past Anesthesia/Blood Transfusion Reactions: Previous Problems w/ Anesthesia Additional Past Anesthesia/Blood Transfusion Reaction / Comment(s): "Difficult intubation with sinus surgery", had knee surgery after sinus surgery without difficulty. Past Psychological History: No Psychological Hx Reported Smoking Status: Never smoker Past Alcohol Use History: Daily Additional Past Alcohol Use History / Comment(s): 2 alcoholic drinks most days of the week. Past Drug Use History: None Reported - Past Family History Mother Family Medical History: No Reported History Medications and Allergies Home Medications Medication Instructions Recorded Confirmed Type Irbesartan [Avapro] 300 mg PO HS 05/04/18 07/18/24 History Pantoprazole Sodium 40 mg PO DAILY 05/04/18 07/18/24 History Celebrex(Unknown Dose) 1 tab PO BID 07/18/24 07/18/24 History Diabetes Pill (Unknown Name) 1 tab PO DAILY 07/18/24 07/18/24 History Januvia (Unknown Dose) 1 tab PO DAILY 07/18/24 07/18/24 History amLODIPine [Norvasc] 10 mg PO HS 07/18/24 07/18/24 History Allergies Allergy/AdvReac Type Severity Reaction Status Date / Time MINI Inhibitors AdvReac Cough Verified 07/18/24 08:54
[2024-07-20 07:51] VITALS: TEMP 97.7
[2024-07-20] MEDS: LIDOCAINE 1% (10MG/ML) FOR IV START INTRADERMA PRN (07:52)
[2024-07-20] MEDS: IV FLUID CONTINUATION 1,000 ML IV ONE (07:52)
[2024-07-20] MEDS: LACTATED RINGERS 1,000 ML IV SCH (07:53)
[2024-07-20] MEDS ORDERED: PROPOFOL 10 MG/ML 20 ML VIAL IV ONE (08:12)
[2024-07-20 08:24] LABS: Glucose,Whole Blood 112 mg/dL (70-110)
--- NOTE | 2024-07-20 08:34 | P.PCN ---
Date of Procedure: 07/20/24 Description of Procedure: PREOPERATIVE DIAGNOSIS: Gastroesophageal reflux disease. Hiatal hernia Dysphagia POSTOPERATIVE DIAGNOSIS: Gastroesophageal reflux disease with erosive esophagitis Gastritis. Diaphragmatic hiatal hernia OPERATION: Esophagogastroduodenoscopy with biopsies along esophagus, antrum and duodenum SURGEON: Janie Figueroa MD ANESTHESIA: MAC. INDICATIONS: The patient is a [id number] male who presents with reflux disease and occasional dysphagia. Benefits and risks of the procedure were described. Informed consent was obtained. DESCRIPTION: The patient was brought into the endoscopy suite and laid in the left lateral decubitus position. An Olympus gastroscope was passed along the posterior oropharynx down to the distal esophagus where the squamocolumnar junction was encountered at 40 cm from the incisors. The stomach was entered and no bile reflux was found. Additional findings are listed below. Biopsies with cold forceps were obtained of the antrum. The first through third portion of the duodenum was examined. Retroflexion of the scope confirmed Hill grade 3 lower esophageal valve. The squamocolumnar junction demonstrated LA grade C erosive esophagitis. The stomach was desufflated. The patient tolerated the procedure well. FINDINGS: Squamocolumnar junction 40 cm from the incisors. Diaphragmatic hiatus at 43 cm. Hiatal hernia, 3 cm Hill grade 3 lower esophageal valve. LA grade C erosive esophagitis. Biopsies obtained. Biopsies obtained of the duodenum. Chronic gastritis with biopsies obtained. RECOMMENDATIONS: Omeprazole 40 mg daily Repeat upper endoscopy as needed
--- NOTE | 2024-07-20 08:54 | P.PCN ---
Date of Procedure: 07/20/24 Description of Procedure: PREOPERATIVE DIAGNOSIS: Personal history of colon polyps Colonoscopy screening. POSTOPERATIVE DIAGNOSIS: Colonoscopy screening. Severe sigmoid diverticulosis OPERATION: Colonoscopy to the cecum, ileocecal valve and appendiceal orifice. SURGEON: Janie Figueroa MD. ANESTHESIA: MAC. INDICATIONS: The patient is a 54-year-old male who presents for colonoscopy screening. Benefits and risks were described and informed consent was obtained. DESCRIPTION OF PROCEDURE: The patient had undergone Sutab prep. The patient had been brought into the operating room and laid in the left lateral decubitus position. After adequate intravenous sedation, the rectum was examined with 2% lidocaine jelly. External hemorrhoids were encountered. The rectal tone was within normal limits. No lesions were palpated in the rectal vault. An Olympus colonoscope was advanced until the cecum, ileocecal valve and appendiceal orifice were clearly viewed. The prep was excellent. Scattered diverticulosis with severe sigmoid diverticulosis was encountered. No colonic polyps were found. No evidence of focal colitis was found. Retroflexion of the scope demonstrated grade 3 internal hemorrhoids without active bleeding or inflammation. The colon was desufflated. The patient had tolerated the procedure well. Withdrawal time was over 6 minutes. FINDINGS: Aronchick preparation quality scale 1+ (1-5) Internal hemorrhoids, grade 3 External prolapsed hemorrhoids, grade 1. Severe sigmoid diverticulosis No arteriovenous malformations. No adenomatous polyps. No focal colitis. RECOMMENDATIONS: Lower endoscopy in 5 years, 2028 Plan - Discharge Summary Discharge Rx Participant: No New Discharge Prescriptions: Continue Irbesartan [Avapro] 300 mg PO HS Pantoprazole Sodium 40 mg PO DAILY amLODIPine [Norvasc] 10 mg PO HS Diabetes Pill (Unknown Name) 1 tab PO DAILY Celebrex(Unknown Dose) 1 tab PO BID Januvia (Unknown Dose) 1 tab PO DAILY Discharge Medication List Irbesartan [Avapro] 300 mg PO HS 05/04/18 [History] Pantoprazole Sodium 40 mg PO DAILY 05/04/18 [History] Celebrex(Unknown Dose) 1 tab PO BID 07/18/24 [History] Diabetes Pill (Unknown Name) 1 tab PO DAILY 07/18/24 [History] Januvia (Unknown Dose) 1 tab PO DAILY 07/18/24 [History] amLODIPine [Norvasc] 10 mg PO HS 07/18/24 [History] Follow up Appointment(s)/Referral(s): Janie Figueroa MD [STAFF PHYSICIAN] - 08/02/24 4:00 pm Patient Instructions/Handouts: Hiatal Hernia (DC), Hemorrhoids (DC), Diverticulosis (DC) Activity/Diet/Wound Care/Special Instructions: Repeat colonoscopy 5 years, 2028 Discharge Disposition: HOME SELF-CARE
[2024-07-20 09:01] VITALS: RESP 14
--- NOTE | 2024-07-20 09:02 | P.HPADDEND ---
H&P Addendum H&P Addendum Date: 07/20/24 CHIEF COMPLAINT: GERD and colon screen HISTORY OF PRESENT ILLNESS: The patient is a 54-year-old male who presents with gastroesophageal reflux disease and need for colon screen. Upper and lower endoscopy were offered for further evaluation and management. PAST MEDICAL HISTORY: Please see list. PAST SURGICAL HISTORY: Please see list. MEDICATIONS: Please see list. ALLERGIES: Please see list. SOCIAL HISTORY: No illicit drug use FAMILY HISTORY: No reports of Crohn disease or ulcerative colitis. REVIEW OF ORGAN SYSTEMS: CONSTITUTIONAL: No reports of fevers or chills. GI: Denies any blood in stools or constipation. PHYSICAL EXAM: VITAL SIGNS: Stable GENERAL: Well-developed pleasant in no acute distress. HEENT: No scleral icterus. Extraocular movements grossly intact. Moist buccal mucosa. NECK: Supple without lymphadenopathy. CHEST: Unlabored respirations. Equal bilateral excursions. CARDIOVASCULAR: Regular rate and rhythm. Distal 2+ pulses. ABDOMEN: Soft, nondistended. MUSCULOSKELETAL: No clubbing, cyanosis, or edema. ASSESSMENT: 1. Gastroesophageal reflux disease 2. Colon screen. PLAN: 1. Recommend proceeding with an upper and lower endoscopy
[2024-07-20 09:14] VITALS: BP 125/85; PULSE 69
== END 2024-07-20 09:43 | disposition home or self-care (01) ==
LOC: ORWHC2ENDO 07:22
PROVIDERS: ATTEND Surgery Plastic and Reconstructive Surgery
DX: Z12.11 Encounter for screening for malignant neoplasm of colon (principal); K29.50 Unspecified chronic gastritis without bleeding; K44.9 Diaphragmatic hernia without obstruction or gangrene; K57.30 Diverticulosis of large intestine without perforation or abscess without bleeding; K21.00 Gastro-esophageal reflux disease with esophagitis, without bleeding; E11.9 Type 2 diabetes mellitus without complications; E78.00 Pure hypercholesterolemia, unspecified; I10 Essential (primary) hypertension; J45.909 Unspecified asthma, uncomplicated; M19.90 Unspecified osteoarthritis, unspecified site; Z79.84 Long term (current) use of oral hypoglycemic drugs; Z86.0100 Personal history of colon polyps, unspecified; Z79.899 Other long term (current) drug therapy; Z79.1 Long term (current) use of non-steroidal anti-inflammatories (NSAID); Z88.8 Allergy status to other drugs, medicaments and biological substances; Z98.890 Other specified postprocedural states
CPT/HCPCS: 88305; 45378; 43239; J2704

== ENCOUNTER → 2024-12-09 | Day surgery (SDC) | payer OTHER ==
[~2024-12-09] MED LIST changes: +GLYCOPYRROLATE 0.2 MG/ML 2 ML VIAL ONE; +HYDROmorphone 0.5 MG/0.5 ML SYRINGE IVP PRN; +INDOCYANINE GREEN 25 MG VIAL IV ONE; +KETOROLAC 15 MG/ML 1 ML VIAL ONE; -LACTATED RINGERS 1,000 ML IV SCH; +LIDOCAINE 1% INJ 10MG/ML (20 ML MDV) ONE; +MIDAZOLAM 2 MG/2 ML VIAL IV PRN; +MIDAZOLAM 2 MG/2 ML VIAL ONE; +NEOSTIGMINE 1 MG/ML 10 ML VIAL ONE; +PROPOFOL 10 MG/ML 20 ML VIAL IV ONE; +ROCURONIUM 10 MG/ML (5 ML VIAL) IV ONE; +SUCCINYLCHOLINE CHLORIDE 200 MG/10 ML VIAL IV ONE; +WATER FOR INJECTION, STERILE 10 ML VIAL IV ONE; +fentaNYL (PF) 50 MCG/ML 2 ML AMP ONE
--- NOTE | 2024-12-09 07:33 | P.GSHP ---
History of Present Illness H&P Date: 12/09/24 CHIEF COMPLAINT: Cholecystitis HISTORY OF PRESENT ILLNESS: The patient is a 54-year-old male who presents with history of epigastric including right upper quadrant abdominal pain. He underwent diagnostic studies for the gallbladder. Separately his clinical picture was consistent with cholecystitis. Now he presents for surgical intervention. PAST MEDICAL HISTORY: Please see list PAST SURGICAL HISTORY: Please see list MEDICATIONS: Please see list ALLERGIES: Denies. SOCIAL HISTORY: No illicit drug use or recent tobacco use FAMILY HISTORY: Pertinent for gallbladder disease REVIEW OF ORGAN SYSTEMS: CONSTITUTIONAL: No reports of fevers or chills. HEENT: Denies any troubles with the vision or hearing. ENDOCRINE: No reports of hypothyroidism. No diabetes. RESPIRATORY: No recent pneumonias. CARDIOVASCULAR: Denies chest pain or palpitations GI: No blood in stools or constipation. MUSCULOSKELETAL: Has occasional joint pain including back pain. NEURO: No seizure disorders or headaches. No recent stroke. PSYCH: No depression or suicidal ideation. HEMATOLOGIC: No personal or family history of DVTs or pulmonary emboli. PHYSICAL EXAM: VITAL SIGNS: Afebrile vital signs stable GENERAL: Well-developed pleasant male in no acute distress. HEENT: No scleral icterus. Extraocular movements grossly intact. Moist buccal mucosa. NECK: Supple without lymphadenopathy. CHEST: Unlabored respirations. Equal bilateral excursions. CARDIOVASCULAR: Regular rate regular rhythm rhythm. Distal 2+ pulses. ABDOMEN: Soft, nondistended. Tender along the epigastrium and right upper quadrant. MUSCULOSKELETAL: No clubbing, cyanosis, or edema. NEURO : No focal or lateralizing signs. Cranial nerves II-12 within normal limits. PSYCH: Alert and oriented to person, place and time. SKIN: Well perfused. Good skin turgor. ASSESSMENT: 1. Epigastric and right upper quadrant abdominal pain 2. Chronic cholecystitis PLAN: 1. Will need a robotic cholecystectomy possible open. Benefits and risks were described. 2. Heparin for DVT prophylaxis 5000 units. 3. Antibiotic prophylaxis. 4. CBC and CMP on day of procedure 5. Non-narcotic pre and post op pain management reviewed. 6. Indocyanine green for biliary imaging. Past Medical History Past Medical History: Asthma, Diabetes Mellitus, GERD/Reflux, Hyperlipidemia, Hypertension, Osteoarthritis (OA) Additional Past Medical History / Comment(s): Hx precancerous colon polyps, hiatal hernia, RLS History of Any Multi-Drug Resistant Organisms: None Reported Past Surgical History: Orthopedic Surgery Additional Past Surgical History / Comment(s): Sinus surgery, left knee surg, colonoscopy/EGD X2. Past Anesthesia/Blood Transfusion Reactions: Previous Problems w/ Anesthesia Additional Past Anesthesia/Blood Transfusion Reaction / Comment(s): "Difficult intubation with sinus surgery", had knee surgery after sinus surgery without di fficulty. Smoking Status: Never smoker - Past Family History Mother Family Medical History: Diabetes Mellitus Medications and Allergies Home Medications Medication Instructions Recorded Confirmed Type Irbesartan [Avapro] 300 mg PO HS 05/04/18 12/05/24 History Pantoprazole Sodium 40 mg PO BID 05/04/18 12/05/24 History amLODIPine [Norvasc] 10 mg PO HS 07/18/24 12/05/24 History Celecoxib [CeleBREX] 100 mg PO BID 12/05/24 12/05/24 History Dapagliflozin Propanediol [Farxiga] 10 mg PO DAILY 12/05/24 12/05/24 History Ezetimibe [Zetia] 10 mg PO DAILY 12/05/24 12/05/24 History sitaGLIPtin [Januvia] 100 mg PO DAILY 12/05/24 12/05/24 History Allergies Allergy/AdvReac Type Severity Reaction Status Date / Time MINI Inhibitors AdvReac Cough Verified 12/05/24 17:26
[2024-12-09] MEDS: LACTATED RINGERS 1,000 ML IV SCH (08:06)
[2024-12-09] MEDS: ACETAMINOPHEN TAB 500 MG TAB PO PRN (08:07)
[2024-12-09] MEDS: HEPARIN SODIUM,PORCINE 5,000 UNIT/ML 1 ML VIAL SQ PRN (08:07)
[2024-12-09] MEDS: ONDANSETRON 4 MG/2 ML VIAL IVP PRN (08:07)
[2024-12-09] MEDS: DEXAMETHASONE SOD PHOSPHATE 4 MG/ML 1 ML VIAL IVP STA (08:08)
[2024-12-09 08:11] VITALS: RESP 16
[2024-12-09] MEDS: LACTATED RINGERS 1,000 ML IV ONE (08:11)
[2024-12-09 08:13] LABS: Basophils # (A) 0.05 10*3/uL (0.00-0.10); Basophils % (A) 1.1 %; Eosinophils # (A) 0.18 10*3/uL (0.04-0.35); Eosinophils % (A) 3.9 %; HCT 43.3 % (39.6-50.0); HGB 15.7 g/dL (13.0-17.0); Lymphocytes # (A) 0.92 10*3/uL (0.90-5.00); Lymphocytes % (A) 19.8 %; MCH 31.7 pg (27.0-32.0); MCHC 36.3 g/dL (32.0-37.0); MCV 87.3 fL (80.0-97.0); Monocytes # (A) 0.65 10*3/uL (0.20-1.00); Neutrophils # (A) 2.83 10*3/uL (1.80-7.70); Platelet Count 134 10*3/uL (140-440); RBC 4.96 10*6/uL (4.40-5.60); RDW 12.5 % (11.5-14.5); WBC 4.64 10*3/uL (4.50-10.00)
[2024-12-09 08:23] LABS: ALT 41 U/L (4-49); AST 33 U/L (17-59); African American GFR (CKD) >90 (>60 ml/min/1.73 sqM); Albumin 4.1 g/dL (3.5-5.0); Alkaline Phosphatase 69 U/L (38-126); Anion Gap 6 mmol/L; Blood Urea Nitrogen 16 mg/dL (9-20); Calcium 8.7 mg/dL (8.4-10.2); Carbon Dioxide 27 mmol/L (22-30); Chloride 106 mmol/L (98-107); Glucose 136 mg/dL (74-99); Non-African American GFR(CKD) >90 (>60 ml/min/1.73 sqM); Potassium 4.1 mmol/L (3.5-5.1); Sodium 139 mmol/L (137-145); Total Bilirubin 0.8 mg/dL (0.2-1.3); Total Protein 7.1 g/dL (6.3-8.2)
[2024-12-09] MEDS: ceFAZolin 2 GM in DEXTROSE 5% IN WATER 50 ML IVPB PRN (08:58)
[2024-12-09] MEDS: LIDOCAINE 1%-EPI 1:100,000 20 ML VIAL SQ ONE (09:25)
[2024-12-09 10:48] VITALS: TEMP 96.8
[2024-12-09] MEDS: IV FLUID CONTINUATION 1,000 ML IV ONE (10:53)
--- NOTE | 2024-12-09 10:58 | P.OP ---
Date of Procedure: 12/09/24 Description of Procedure: SURGEON: JANIE FIGUEROA MD PREOPERATIVE DIAGNOSES: 1. Chronic cholecystitis 2. Right upper quadrant abdominal pain 3. Diabetes type 2, not insulin-dependent 4. Hypertensive heart disease 5. Gastroesophageal reflux disease 6. Generalized osteoarthritis 7. Asthma POSTOPERATIVE DIAGNOSES: 1. Chronic cholecystitis 2. Right upper quadrant abdominal pain 3. Diabetes type 2, not insulin-dependent 4. Hypertensive heart disease 5. Gastroesophageal reflux disease 6. Generalized osteoarthritis 7. Asthma OPERATION: Robotic-assisted da Leo Xi laparoscopic cholecystectomy, multiport with FIREFLY ESTIMATED BLOOD LOSS: 10 mL. SPECIMENS REMOVED: Gallbladder. COMPLICATIONS: None. OPERATIVE FINDINGS: 1. Chronic cholecystitis of moderately fatty infundibulum INDICATIONS: The patient is a 54-year-old male who presents with chronic cholecystitis. Robotic assisted laparoscopic approach was described. Benefits and risks of the procedure including but not limited to bleeding, infection, injury to the biliary tree was described. Informed consent was obtained. DESCRIPTION OF PROCEDURE: Patient was brought to the operating room, placed in supine position. After general induction, the abdomen had been prepped and draped in standard sterile fashion. The robotic da Leo XI system was primed. After a timeout protocol was performed, the patient had been prepped and draped in standard sterile fashion. The patient was injected with indocyanine green. A 5 mm 0 degrees laparoscopic trocar entry was performed along the left upper quadrant. The abdomen insufflated to 15 mmHg pressure which was tolerated well. Diagnostic laparoscopy demonstrated no injury to bowel viscera or mesentery. The liver surface was unremarkable. Next, two 8 mm robotic ports were placed along the right upper abdomen. The camera 8-mm port was maintained along the epigastrium. Another 8 mm port was placed along the left upper abdominal wall after exchanging the 5 mm port. Please note that the ports were placed at least 10 to 15 cm away from the target anatomy of the gallbladder. The robot was docked along the left lateral abdomen. The patient was repositioned in reverse Trendelenburg position. Using a grasper for arm 1, a grasper for arm 4, including hook cautery for arm 3, the robotic system was docked and primed as described. Instruments were interchanged by the specimen preparation assistant including hook cautery, Bovie cautery and clip appliers. I had sat at the console. Moderate fatty tissue was identified along the infundibulum. Dome down technique was performed dividing the gallbladder from the avascular plane of the hepatic fossa. Using hook cautery, the gallbladder was dissected free from the liver bed. Next attention was brought to the infundibulum and cystic structures. The infundibulum and cystic duct were dissected free from yoon rrounding tissues. The cystic duct was isolated. FIREFLY was used to identify the cystic artery and cystic structures. A critical view of safety was obtained. Large PLASTIC clips were used throughout the entire case. Using a clip granulizing machine operator, 3 clips were placed at the junction of the infundibulum and cystic duct. The cystic duct was divided between clips. Next, the cystic artery was similarly clipped and cauterized. Total of 3 clips were remained at the hepatic fossa. Electro-Bovie cautery was used to remove the gallbladder from the hepatic fossa. Hemostasis was checked and found to be adequate. The robot was undocked. I re-scrubbed into the case. Using a 10 mm Endo Catch bag via the left upper quadrant incision, the specimen was removed from the abdominal cavity. All pneumoperitoneum instruments were evacuated from the abdominal cavity. The incisions were reapproximated using 4-0 Monocryl in an interrupted subcuticular fashion. Fascial defects were less than 8 mm in size. Please note along the trocar sites, local anesthetic was placed as a field block prior to insertion of all instruments. Liquid glue was applied to the skin. At the end of the procedure needle, sponge, and instrument count had been verified correct by the certified surgical technologist. The patient was transferred to postanesthesia care unit in stable condition. Intraoperative films were shared with the patient's family. Plan - Discharge Summary Discharge Rx Participant: No New Discharge Prescriptions: New Acetaminophen Tab [Tylenol Tab] 1,000 mg PO Q6HR PRN #30 tablet PRN Reason: Pain Simethicone [Gas-X] 125 mg PO AC-TID PRN #20 capsule PRN Reason: Pain Continue Irbesartan [Avapro] 300 mg PO HS Pantoprazole Sodium 40 mg PO BID amLODIPine [Norvasc] 10 mg PO HS sitaGLIPtin [Januvia] 100 mg PO DAILY Dapagliflozin Propanediol [Farxiga] 10 mg PO DAILY Ezetimibe [Zetia] 10 mg PO DAILY Celecoxib [CeleBREX] 100 mg PO BID Discharge Medication List Irbesartan [Avapro] 300 mg PO HS 05/04/18 [History] amLODIPine [Norvasc] 10 mg PO HS 07/18/24 [History] Celecoxib [CeleBREX] 100 mg PO BID 12/05/24 [History] Dapagliflozin Propanediol [Farxiga] 10 mg PO DAILY 12/05/24 [History] Ezetimibe [Zetia] 10 mg PO DAILY 12/05/24 [History] sitaGLIPtin [Januvia] 100 mg PO DAILY 12/05/24 [History] Acetaminophen Tab [Tylenol Tab] 1,000 mg PO Q6HR PRN #30 tablet 12/09/24 [Rx] Simethicone [Gas-X] 125 mg PO AC-TID PRN #20 capsule 12/09/24 [Rx] Follow up Appointment(s)/Referral(s): Janie Figueroa MD [STAFF PHYSICIAN] - 12/13/24 7:20 pm (Doctor will call you at home) Patient Instructions/Handouts: Laparoscopic Cholecystectomy (DC) Activity/Diet/Wound Care/Special Instructions: TELEHEALTH - DR WILL CALL YOU BETWEEN 9 am to 8 pm NO LONG DRIVES OR AIRPLANE RIDES OVER 60 MINUTES FOR THE NEXT 2, 12/23/24 WEEKS DUE TO HIGH RISK OF PULMONARY EMBOLISM/DVTs May drive in 72 hrs, 12/12/24 No lifting over 10 pounds in 2 weeks until 12/23/24 May shower. No bath tub soaks for two weeks until 12/23/24 Diet as tolerated. Use Tylenol, simethicone and ibuprofen or Aleve scheduled for the next 24-48 hours for best pain relief. Use ice along incisions for today to prevent swelling. Discharge Disposition: HOME SELF-CARE
[2024-12-09 12:18] VITALS: BP 122/74; PULSE 73
== END | disposition home or self-care (01) ==
LOC: OR 07:35
PROVIDERS: ATTEND Surgery Plastic and Reconstructive Surgery
DX: K80.10 Calculus of gallbladder with chronic cholecystitis without obstruction (principal); E11.9 Type 2 diabetes mellitus without complications; I11.9 Hypertensive heart disease without heart failure; K21.9 Gastro-esophageal reflux disease without esophagitis; J45.909 Unspecified asthma, uncomplicated; Z79.84 Long term (current) use of oral hypoglycemic drugs; E78.5 Hyperlipidemia, unspecified
CPT/HCPCS: 47562; S2900; 80053; 85025; 88304